=== PATIENT | female | born 1945 | race Caucasian/White ===

== ENCOUNTER 2016-10-22 06:31 | Outpatient (CLI) ==
[2016-10-22 14:31] VITALS: BMI 35.9
--- NOTE | 2016-10-23 10:28 | ECHO2D ---
Date of Exam: 10/22/16 Ordering Physician: DAKOTA PADILLA Reason for Echo: LEFT BUNDLE BRANCH BLOCK, SOB, ABNORMAL EKG Auscultation: S1, S2 M-Mode Normal Adult Results LV Dimensions Normal Adult Results AoV Opening excursions >1.6 >1.6 LVEDD-base- 3.5-5.8 4.8 Ao root dimensions 2.0-3.7 3.3 LVESD-base- 3.1-4.6 L. Atrium dimensions 1.9-3.8 5.2 Post. Wall thickness 0.8-1.1 1.2 IV septum (thickness) 0.7-1.2 1.3 Post. Wall excursion 0.72-1.3 NORMAL Septal motion NORMAL Systolic motion R. Ventricular cavity 1.5-2.0 NORMAL LVEF 60% 63% Paradoxical septal wall motion NORMAL 2-D : NORMAL LEFT VENTRICULAR CONTRACTILITY--ENLARGED LEFT ATRIAL CAVITY--NO EFFUSION, NO THROMBUS, NORMAL LEFT VENTRICLE CAVITY SIZE M-MODE: MV: NORMAL AV: NORMAL TV: NORMAL PV: CHAMBER SIZE: ENLARGED LEFT ATRIAL CAVITY WALL MOTION: NORMAL PERICARDIUM: NORMAL INTERPRETATION: 1. LEFT VENTRICULAR HYPERTROPHY WITH ENLARGED LEFT ATRIAL CAVITY 2. NORMAL LEFT VENTRICULAR CONTRACTILITY 3. NORMAL VALVES MTDD
== END 2016-10-22 06:32 | disposition home or self-care (01) ==
LOC: CAR 06:31
PROVIDERS: ATTEND Internal Medicine
DX: R06.02 Shortness of breath (principal); I44.7 Left bundle-branch block, unspecified

== ENCOUNTER 2016-10-22 13:07 | Inpatient (IN) ==
[~2016-10-22 13:07] MED LIST: LASIX IVP SCH
[2016-10-22 14:31] VITALS: BMI 35.9
--- NOTE | 2016-10-22 16:14 | CT ---
Exam: CT abdomen and pelvis without contrast. Clinical indication: Anemia. TECHNIQUE: Axial unenhanced CT images of the abdomen and pelvis were obtained followed by coronal a nd sagittal reformats. There are no prior studies available for comparison. Findings: There is no free intra-abdominal gas or fluid. The liver, gallbladder, pancreas, spleen, and kidneys are unremarkable, given the limitations of an unenhanced CT. There is a left adrenal mass which measures 3.6 cm in maximum diameter and contains internal density less than 10, consistent with an incidental left adrenal adenoma. The right adrenal gland is unrem arkable. There is an IVC filter in an infrarenal location. There are no enlarged abdominal or pelvic lymph nodes, by size criteria. The pelvic organs are grossly unremarkable, given the limitations of CT for evaluating them. There is sigmoid diverticulosis, without evidence of diverticulitis. The remainder of the bowel is grossly unremarkable. The visualized portions of lower thorax are within normal limits. There is a mild grade 1 anterolisthesis of L3 on L4 of approximately 0.3 cm. There is lower lumbar degenerative disc and facet disease. Impression: 1. Two sigmoid diverticulosis, without evidence of diverticulitis. 2. Incidental left adrenal adenoma. 3. Mild grade 1 anterolisthesis of L3 on L4. 4. Multilevel lumbar degenerative disc and facet disease. 5. IVC filter in an infrarenal location.
[2016-10-22] MEDS: CORDARONE PO SCH (16:53)
[2016-10-22] MEDS: SINGULAIR PO SCH (16:53)
[2016-10-22] MEDS ORDERED: LASIX IVP SCH ×2 (20:30→23:55)
[2016-10-22] MEDS: TOPROL XL PO SCH (20:50)
[2016-10-22] MEDS: NEURONTIN PO SCH (20:50)
[2016-10-22] MEDS ORDERED: NON-FORMULARY MEDICATION (Metoprolol Succinate [Metoprolol Succinate] 100 MG) PO SCH (21:00)
[2016-10-23 01:48] LABS: BASOPHILS # (AUTO) 0.1 K/uL (0-0.2); BASOPHILS % (AUTO) 0.8 % (0.0-3.0); EOSINOPHILS # (AUTO) 0.3 K/ul (0.0-0.7); EOSINOPHILS % (AUTO) 2.2 % (0.0-7.0); HEMATOCRIT 24.6 % (37.0-47.0); HEMOGLOBIN 8.4 g/dl (12.0-16.0); IMMATURE GRANULOCYTE % (AUTO) 0.6 % (0.0-5.0); LYMPHOCYTES % (AUTO) 32.2 (10.0-50.0); MEAN CORPUSCULAR HEMOGLOBIN 29.2 pg (27.0-31.0); MEAN CORPUSCULAR HGB CONC 34.1 (31.8-35.4); MEAN CORPUSCULAR VOLUME 85.4 fl (81.0-99.0); MONOCYTES # (AUTO) 0.9 K/uL (0.4-2.0); MONOCYTES % (AUTO) 7.2 (0-10); PLATELET COUNT 327 10^3/uL (140-440); RED BLOOD COUNT 2.88 10^6/ul (4.20-5.40); WHITE BLOOD COUNT 12.34 K/ul (4.6-10.2)
[2016-10-23 01:58] LABS: PROTHROMBIN TIME 12.1 SEC (9.3-11.0)
[2016-10-23 02:07] LABS: ALBUMIN 3.6 g/dL (3.4-5.0); ALBUMIN/GLOBULIN RATIO 1.38; ANION GAP 17.7; BILIRUBIN,TOTAL 0.62 mg/dL (0.00-1.20); BUN/CREATININE RATIO 20.23; CALCIUM 8.3 mg/dL (8.2-10.2); CREATININE 1.68 mg/dL (0.60-1.30); POTASSIUM 3.7 mmol/L (3.5-5.10); TOTAL PROTEIN 6.2 g/dL (5.8-8.1)
[2016-10-23] MEDS: SYNTHROID PO SCH ×2 (05:32)
[2016-10-23] MEDS ORDERED: SYNTHROID PO SCH (06:30)
[2016-10-23] MEDS ORDERED: NON-FORMULARY MEDICATION (Levothyroxine Sodium [Synthroid] 175 MCG) PO SCH ×22 (06:30)
[2016-10-23] MEDS ORDERED: GLUCOPHAGE PO SCH (08:00)
[2016-10-23] MEDS: ZOLOFT PO SCH (08:40)
[2016-10-23] MEDS: TOPROL XL PO SCH ×2 (08:40→21:37)
[2016-10-23] MEDS: JANUVIA PO SCH (08:40)
[2016-10-23] MEDS: LOTENSIN PO SCH (08:41)
[2016-10-23] MEDS: DYAZIDE PO SCH (08:41)
[2016-10-23] MEDS: NEURONTIN PO SCH ×2 (08:41→21:37)
[2016-10-23] MEDS: PSEUDOEPHEDRINE PO SCH (08:41)
[2016-10-23] MEDS: LORATADINE PO SCH (08:41)
[2016-10-23] MEDS ORDERED: SITAGLIPTIN PHOS PO SCH (09:00)
[2016-10-23] MEDS ORDERED: [UNRECOGNIZED DRUG - OTHER] PO SCH (09:00)
[2016-10-23] MEDS ORDERED: METFORMIN HCL PO SCH (09:00)
[2016-10-23] MEDS ORDERED: NON-FORMULARY MEDICATION (Sertraline Hcl [Sertraline Hcl] 100 MG) PO SCH (09:00)
[2016-10-23] MEDS ORDERED: LASIX IVP ONE (13:00)
--- NOTE | 2016-10-23 13:32 | PCM.PROG ---
Attending Provider: ATTENDING PROVIDER: Dr. DAKOTA PADILLA DATE OF SERVICE: 10/23/16 SUBJECTIVE: This 71 year old WHITE/ F was hospitalized 10/22/16. The patient is hospitalized with anemia and rectal bleeding. The patient is not actively bleeding but still has some fresh blood in the bowel movements off and on. Hemoglobin is 8.4 and hematocrit is 24. Kidney functions are stable. The patient will be given one more unit of PRBC and will get a referral to GI. Telemetry shows sinus rhythm. REVIEW OF SYSTEMS: CONSTITUTIONAL: No night sweats. No fatigue, malaise, lethargy. No fever or chills. HEENT: Eyes: No visual changes. No eye pain. No eye discharge. ENT: No runny nose. No epistaxis. No sinus pain. No odynophagia. No congestion. RESPIRATORY: No cough, no congestion. No hemoptysis. CARDIOVASCULAR: No angina symptoms. No CHF symptoms. No atypical chest pain for CAD. No palpitations. No shortness of breath. GASTROINTESTINAL: No abdominal pain. No nausea or vomiting. No diarrhea or constipation. GENITOURINARY: No urgency. No frequency. No dysuria. No hematuria. No obstructive symptoms. No discharge. No pain. No significant abnormal bleeding. MUSCULOSKELETAL: arthritis NEUROLOGICAL: Awake, alert, oriented to time, place and person. No headache. No neck pain. No syncope. No seizures. No dizziness. PSYCHIATRIC: Not anxious. No depression. No suicidal thoughts. No homicidal thoughts. SKIN: No rash. No lesions. No wounds. ENDOCRINE: No unexplained weight loss. No weight gain. HEMATOLOGIC/LYMPHATIC: Anemia. No purpura. No petechiae. No prolonged or excessive bleeding. No palpable lymph nodes. PHYSICAL EXAMINATION: GENERAL: The patient is awake, alert and oriented, lying in bed in no distress. VITAL SIGNS: Temperature 97.3 F, Pulse 67, Respiratory Rate 12, BP 142/63, Pulse Ox 98% HEENT: Head normocephalic, atraumatic. Eyes: Extraocular muscles are intact. Pupils are equal, round and reactive to light and accommodation. Ears: No lesions. Nose appeared normal. Throat: No exudate or erythema. NECK: Supple. No JVD, no carotid bruit. No lymphadenopathy or thyromegaly. LUNGS: Clear to auscultation. Percussion note normal. Chest symmetrical. HEART: S1, S2, no S3. No murmurs. No cyanosis or clubbing. No ascites. Pulses: Dorsalis pedis and posterior tibial pulses +1 to +2 both sides. ABDOMEN: Soft. Non-tender. Bowel sounds active. No CVA tenderness. No mass felt. EXTREMITIES: No edema. Full range of motion of all extremities, equal. NEUROLOGIC: No focal deficit. Cranial nerves II through XII are grossly intact. No headache, no double vision or headache. SKIN: Not dry. Intact. Turgor-normal. LYMPHATIC: No palpable lymph nodes/no lymphedema. MUSCULOSKELETAL: Normal joints with no swelling. Muscle tone is normal. LAB REVIEW: 10/23/16 01:40 10/23/16 01:40 10/23/16 01:40: WBC 12.34 H, RBC 2.88 L, Hgb 8.4 L, Hct 24.6 L, MCV 85.4, MCH 29.2, MCHC 34.1, RDW Coeff of Margarita 14.2, Plt Count 327, Immature Gran % (Auto) 0.6, Neut % (Auto) 57.0, Lymph % (Auto) 32.2, [place] % (Auto) 7.2, Eos % (Auto) 2.2, Baso % (Auto) 0.8, Immature Gran # (Auto) 0.1, Neut # 7.0 H, Lymph # 4.0 H , [place] # 0.9, Eos # 0.3, Baso # 0.1, PT 12.1 H, INR 1.17, Sodium 134 L, Potassium 3.7, Chloride 98, Carbon Dioxide 22 L, Anion Gap 17.7, BUN 34 H, Creatinine 1.68 H, Estimated GFR (MDRD) 30.00, BUN/Creatinine Ratio 20.23, Glucose 108, Calcium 8.3, Total Bilirubin 0.62, AST 22, ALT 25, Alkaline Phosphatase 54, Total Protein 6.2, Albumin 3.6, Globulin 2.6, Albumin/Globulin Ratio 1.38 10/22/16 14:15: Hgb 6.9 L, TSH 1.925, Blood Type O POSITIVE, Antibody Screen Negative, Crossmatch (AHG) See Detail ASSESSMENT: 1. Anemia, stable with rectal bleed 2. CKD 3. Severe dyslipidemia, untreated because of problem with statins 4. History of DVT with IVC filter 5. History of cardioversion times. At the present time, the patient is in sinus rhythm. The patient is off Coumadin. PLAN: 1. Referral to GI 2. Will transfuse pne more unit of PRBC. 3. Lasix 20 mg after transfusion. 4. Hold Glucophage. Plan and coordination of the patient's care discussed in the presence of Art Historian and nurse. CONDITION: STABLE SCRIBED BY: Chelsea SCHAFFER scribed while in presence of service performed by Dr. DAKOTA PADILLA on 10/23/16 ([id number])
[2016-10-23 14:52] LABS: HEMATOCRIT 31.8 % (37.0-47.0); HEMOGLOBIN 10.9 g/dl (12.0-16.0)
--- NOTE | 2016-10-23 14:58 | HP ---
DATE OF SERVICE: 10/22/16 REASON FOR HOSPITALIZATION: Severe anemia, blood in stool. HISTORY OF PRESENT ILLNESS: This is 71-year-old female who called the office to see me as hemoglobin and hematocrit were 7.3 and 21.0 on 10/21/16. Hemoglobin and hematocrit two months ago were 11.7 and 36; 10/30 on 10/05/16. The patient is complaining of rectal bleeding times three weeks; spotting; bright red and at times, clots (small). No bleeding times five days. She complains of shortness of breath and fatigue times two weeks. REVIEW OF SYSTEMS: CONSTITUTIONAL: Fatigue. No fever. HEENT: No sinus drainage, no sore throat. RESPIRATORY: No cough. No hemoptysis. CARDIOVASCULAR: Shortness of breath with little exertion. No atypical chest pain for coronary artery disease. No angina, CHF symptoms, or palpitations. GASTROINTESTINAL: No melena or abdominal pain. No GERD. GENITOURINARY: No hematuria, no polyuria. NEUROLOGY MANAGER: Dizziness. No blackout, no headache, no double vision. MUSCULOSKELETAL: Osteoarthritic pain. ENDOCRINE: No weight loss, no weight gain. SKIN: Not dry, no rash. PSYCHIATRIC: Anxious. No depression, no suicidal thoughts, no homicidal thoughts. PAST MEDICAL/SURGICAL HISTORY: 1. History of C. difficile colitis 2. History of melanoma 3. Cardioversion in 2014 4. Sleep apnea 5. Hypothyroidism 6. Type 2 diabetes mellitus 7. Hypertension 8. Atrial fibrillation 9. Depression 7. Osteoarthritis 8. Chronic kidney disease 9. Dyslipidemia 10. History of anemia 11. Left total knee arthroplasty, 2009 12. Right total knee arthroplasty with subsequent MRSA infection 13. Carpal tunnel surgery 14. History of [place] catheter placement 15. Cataract surgery. SOCIAL HISTORY: Nonsmoker. . Retired from [employer]. No alcohol use. She denies illicit drug use. Two children. She is retired from [employer]. Family History: Cardiac disorders; thyroid disease. History of leukemia in Father. MEDICATIONS: (Home) 1. Montelukast 10 mg p.o. q.p.m. 2. Levothyroxine (Synthroid) 175 mcg p.o. q.d a.c. 3. Warfarin (Coumadin) 3 mg p.o. q.p.m. 4. Amiodarone (Cordarone) 200 mg p.o. q.p.m. 5. Triamterene/Hydrochlorothiazide (Maxzide 37.5 mg - 25 mg) one each p.o. q.a.m. 6. Sitagliptin/Metformin one each p.o. q.a.m. 7. Sertraline 100 mg p.o. q.a.m. 8. Metoprolol 100 mg p.o. b.i.d. 9. Loratadine/Pseudoephedrine one tab p.o. q.a.m. 10. Gabapentin (Neurontin) 300 mg p.o. b.i.d. 11. Benazepril 10 mg p.o. q.a.m. ALLERGIES: PENICILLINS, NLVOTAL-PBE-DBL REDUCTASE INHIBITOR PHYSICAL EXAMINATION: V/S: Pulse 84, BP 118/80, 02 sat 100%. Weight 222.6 pounds; height 5'6". BMI 35.9. GENERAL APPEARANCE: Oriented times three. Pallor positive. HEENT: Normal. NECK: No JVP, no bruits. RESPIRATORY: Lungs are clear. CARDIOVASCULAR: S1, S2, no S3, no murmurs. No cyanosis, clubbing. No ascites. GI/ABDOMEN: No tenderness. Bowel sounds are active. EXTREMITIES: No edema, pulses +1, equal. NEUROLOGY MANAGER: Deep tendon reflexes, sensory, motor and gait all normal. RECTAL/PELVIC: Colonoscopy at [facility] 2013. Mammogram - 2009 LAB REVIEW: The patient's hemoglobin was noted to be 6.8 with hematocrit of 20, which again has dropped from the one that was done yesterday which was 7.3 with 21 hematocrit. There is no evidence of active GI bleed. Hemoglobin A1C 6.9. TSH normal. The patient's CT scan of the abdomen and pelvis showed sigmoid diverticulosis, left adrenal adenoma, DJD spine, IVC filter infrarenal location noted. Lipids done on 10/21/16 showed cholesterol 340, triglycerides 381 with LDL 193 with non HDL 263. Creatinine was 1.5, BUN 27, TSH 4.9, mildly elevated. B12 level was normal. The patient was scheduled for Dobutamine Stress Echo Sestamibi on 10/23/16 which has been canceled. ASSESSMENT: 1. SEVERE ANEMIA, HEMOGLOBIN 7.3; HEMATOCRIT 23 2. RECTAL BLEEDING 3. DIABETES MELLITUS TYPE 2 4. ATRIAL FIBRILLATION 5. DEPRESSION 6. CHRONIC KIDNEY DISEASE STAGE 3 - DR. VASQUES 7. HYPERTENSION 8. HYPERLIPIDEMIA 9. MELANOMA RIGHT ARM 10. HYPOTHYROIDISM 11. DYSLIPIDEMIA - SEVERE 12. SLEEP APNEA ON BIPAP 13. DEPRESSION 14. HISTORY OF C. DIFFICILE 15. TOTAL KNEE REPLACEMENT, BILATERAL 16. MRSA RIGHT KNEE PLAN: 1. Admit 2. Routine telemetry orders 3. CT scan of abdomen and pelvis without contrast 4. Continue all medications 5. Type and crossmatch 2 units and transfuse DODIE 6. Daily CBC/CMP 7. Protime daily a.m. 8. T4 and TSH 9. Refer to public health registrar 10. Get records from [facility] CONDITION: Stable TIME SPENT: More than 70 minutes. MTDD
[2016-10-23] MEDS: SINGULAIR PO SCH (17:47)
[2016-10-23] MEDS: CORDARONE PO SCH (17:47)
[2016-10-24] MEDS: SYNTHROID PO SCH ×2 (05:52→05:53)
[2016-10-24 07:30] LABS: BASOPHILS # (AUTO) 0.1 K/uL (0-0.2); BASOPHILS % (AUTO) 0.9 % (0.0-3.0); EOSINOPHILS # (AUTO) 0.3 K/ul (0.0-0.7); EOSINOPHILS % (AUTO) 3.1 % (0.0-7.0); HEMATOCRIT 29.4 % (37.0-47.0); HEMOGLOBIN 9.9 g/dl (12.0-16.0); IMMATURE GRANULOCYTE % (AUTO) 1.2 % (0.0-5.0); LYMPHOCYTES # (AUTO) 3.1 K/uL (0.60-3.4); LYMPHOCYTES % (AUTO) 31.9 (10.0-50.0); MEAN CORPUSCULAR HEMOGLOBIN 27.9 pg (27.0-31.0); MEAN CORPUSCULAR HGB CONC 33.7 (31.8-35.4); MEAN CORPUSCULAR VOLUME 82.8 fl (81.0-99.0); MONOCYTES % (AUTO) 9.9 (0-10); NEUTROPHILS # (AUTO) 5.1 K/ul (2.0-6.9); PLATELET COUNT 330 10^3/uL (140-440); RED BLOOD COUNT 3.55 10^6/ul (4.20-5.40); WHITE BLOOD COUNT 9.67 K/ul (4.6-10.2)
[2016-10-24 07:46] LABS: PROTHROMBIN TIME 11.1 SEC (9.3-11.0)
[2016-10-24 07:56] LABS: ALBUMIN 3.6 g/dL (3.4-5.0); ALBUMIN/GLOBULIN RATIO 1.33; ANION GAP 15.2; BILIRUBIN,TOTAL 0.39 mg/dL (0.00-1.20); BUN/CREATININE RATIO 21.78; CALCIUM 8.8 mg/dL (8.2-10.2); CREATININE 1.79 mg/dL (0.60-1.30); POTASSIUM 3.2 mmol/L (3.5-5.10); TOTAL PROTEIN 6.3 g/dL (5.8-8.1)
[2016-10-24] MEDS: JANUVIA PO SCH (08:58)
[2016-10-24] MEDS: TOPROL XL PO SCH ×2 (08:58→20:10)
[2016-10-24] MEDS: LOTENSIN PO SCH (08:59)
[2016-10-24] MEDS: DYAZIDE PO SCH (08:59)
[2016-10-24] MEDS: ZOLOFT PO SCH (08:59)
[2016-10-24] MEDS: LORATADINE PO SCH (09:00)
[2016-10-24] MEDS: PSEUDOEPHEDRINE PO SCH (09:00)
[2016-10-24] MEDS: NEURONTIN PO SCH ×2 (09:03→20:08)
[2016-10-24] MEDS ORDERED: K-DUR ONE (15:03)
[2016-10-24] MEDS: MICRO-K CAP PO SCH ×3 (15:38→23:14)
[2016-10-24] MEDS: SINGULAIR PO SCH (16:51)
[2016-10-24] MEDS: CORDARONE PO SCH (16:51)
[2016-10-24] MEDS ORDERED: MICRO-K CAP PO STA (17:34)
[2016-10-25 05:21] VITALS: BP 104/56; TEMP 96.7
[2016-10-25 05:34] LABS: BASOPHILS # (AUTO) 0.1 K/uL (0-0.2); BASOPHILS % (AUTO) 0.9 % (0.0-3.0); EOSINOPHILS # (AUTO) 0.4 K/ul (0.0-0.7); EOSINOPHILS % (AUTO) 3.1 % (0.0-7.0); HEMATOCRIT 31.3 % (37.0-47.0); HEMOGLOBIN 10.7 g/dl (12.0-16.0); IMMATURE GRANULOCYTE % (AUTO) 1.5 % (0.0-5.0); LYMPHOCYTES # (AUTO) 3.3 K/uL (0.60-3.4); LYMPHOCYTES % (AUTO) 29.2 (10.0-50.0); MEAN CORPUSCULAR HEMOGLOBIN 28.6 pg (27.0-31.0); MEAN CORPUSCULAR HGB CONC 34.2 (31.8-35.4); MEAN CORPUSCULAR VOLUME 83.7 fl (81.0-99.0); MONOCYTES # (AUTO) 1.1 K/uL (0.4-2.0); MONOCYTES % (AUTO) 10.1 (0-10); NEUTROPHILS # (AUTO) 6.2 K/ul (2.0-6.9); NEUTROPHILS % (AUTO) 55.2; PLATELET COUNT 333 10^3/uL (140-440); RED BLOOD COUNT 3.74 10^6/ul (4.20-5.40); WHITE BLOOD COUNT 11.24 K/ul (4.6-10.2)
[2016-10-25] MEDS: MICRO-K CAP PO SCH (05:36)
[2016-10-25] MEDS: SYNTHROID PO SCH ×2 (05:37)
[2016-10-25 05:44] LABS: PROTHROMBIN TIME 10.4 SEC (9.3-11.0)
[2016-10-25 06:07] LABS: ALBUMIN 3.4 g/dL (3.4-5.0); ALBUMIN/GLOBULIN RATIO 1.26; ANION GAP 15.6; BILIRUBIN,TOTAL 0.31 mg/dL (0.00-1.20); BUN/CREATININE RATIO 27.15; CALCIUM 8.8 mg/dL (8.2-10.2); CREATININE 1.51 mg/dL (0.60-1.30); POTASSIUM 3.6 mmol/L (3.5-5.10); TOTAL PROTEIN 6.1 g/dL (5.8-8.1)
[2016-10-25] MEDS: TOPROL XL PO SCH (08:30)
[2016-10-25] MEDS: LOTENSIN PO SCH (08:30)
[2016-10-25] MEDS: NEURONTIN PO SCH (08:30)
[2016-10-25] MEDS: ZOLOFT PO SCH (08:30)
[2016-10-25] MEDS: JANUVIA PO SCH (08:31)
[2016-10-25] MEDS: DYAZIDE PO SCH (08:31)
[2016-10-25] MEDS: LORATADINE PO SCH (08:33)
[2016-10-25] MEDS: PSEUDOEPHEDRINE PO SCH (08:33)
[2016-10-25] MEDS ORDERED: NIFEREX 150 PO SCH (21:00)
[2016-10-26] MEDS ORDERED: PROTONIX PO SCH (06:30)
--- NOTE | 2016-10-26 09:55 | PN ---
DATE OF SERVICE: 10/24/16 SUBJECTIVE: 71-year-old white female hospitalized with severe anemia. The patient has rectal bleed, seems to be bright red bleeding off and on. The patient has been given three units of packed red cells yesterday. The patient's hemoglobin was 10.9; this morning it is 9.9. The patient will be given 1 unit of packed red cells today and see whether she stays stable. She has had no real bleeding for the past 12 hours. BMs are regular. No abdominal pain. REVIEW OF SYSTEMS: CONSTITUTIONAL: No night sweats. No fatigue, malaise, lethargy. No fever or chills. HEENT: Eyes: No visual changes. No eye pain. No eye discharge. ENT: No runny nose. No epistaxis. No sinus pain. No sore throat. No odynophagia. No congestion. RESPIRATORY: No cough, no congestion. No hemoptysis. CARDIOVASCULAR: No angina symptoms. No CHF symptoms. No atypical chest pain for CAD. No palpitations. No shortness of breath. GASTROINTESTINAL: No abdominal pain. No nausea or vomiting. No diarrhea or constipation. No hematemesis. No hematochezia. GENITOURINARY: No urgency. No frequency. No dysuria. No hematuria. No obstructive symptoms. No discharge. No pain. No significant abnormal bleeding. MUSCULOSKELETAL: No musculoskeletal pain; no joint swelling. NEUROLOGICAL: No headache. No neck pain. No syncope. No seizures. No dizziness. PSYCHIATRIC: Not anxious. No depression. No suicidal thoughts. No homicidal thoughts. SKIN: No rash. No lesions. No wounds. ENDOCRINE: No unexplained weight loss. No weight gain. HEMATOLOGIC/LYMPHATIC: No purpura. No petechiae. No prolonged or excessive bleeding. No palpable lymph nodes. PHYSICAL EXAMINATION: GENERAL: The patient is oriented to time, place and person. VITAL SIGNS: Temperature 97.6, pulse 61, respiratory rate 14, BP 100/60, pulse ox 97%. HEENT: Head normocephalic, atraumatic. Eyes: Extraocular muscles are intact. Pupils are equal, round and reactive to light and accommodation. Ears: No lesions. Nose appeared normal. Throat: No exudate or erythema. NECK: Supple. No JVD, no carotid bruit. No lymphadenopathy or thyromegaly. LUNGS: Decreased breath sounds. Clear to auscultation. Percussion note normal. Chest symmetrical. HEART: S1, S2, no S3. No murmurs. No cyanosis or clubbing. No ascites. Pulses: Dorsalis pedis and posterior tibial pulses +1 to +2 both sides. ABDOMEN: Soft. Nontender. Bowel sounds active. No CVA tenderness. No mass felt. EXTREMITIES: No edema. Full range of motion of all extremities, equal. NEUROLOGIC: No focal deficit. Cranial nerves II through XII are grossly intact. No headache, no double vision or headache. SKIN: Not dry. Intact. Turgor - normal. LYMPHATIC: No palpable lymph nodes/no lymphedema. MUSCULOSKELETAL: Normal joints with no swelling. Muscle tone is normal. ASSESSMENT/PLAN: 1. Anemia. Keep hemoglobin and hematocrit 10/30. 2. Hypokalemia. Will give K-tab 10 mEq four times a day. 3. History of atrial fibrillation. Right now the patient is in sinus rhythm for the last 3 to 4 days while she is being monitored. 4. Chronic kidney disease followed by automobile club information clerk. Creatinine 1.6, BUN 34 and steady. The patient will receive one more unit of packed red cells. The patient is off Coumadin. The patient knows the risk; in fact, she is the one that said she is not going to take the Coumadin until bleeding from the rectum stops, I agree with her because the hemoglobin from 10.6 had fallen to 6.9 within a few weeks. In fact, there is some drop in the hemoglobin even after 3 units of packed red cells. The is also agreeable. There is always that risk of having a stroke because of history of atrial fibrillation but the patient has been in sinus rhythm ever since I have known her. The patient had three cardioversions at [place]. The patient also has IVC filter for recurrent DVT which happened postop. CONDITION: Stable. TIME SPENT: More than 30 minutes. Plan and coordination of the patient's care discussed in the presence of nurse. BERNADETTE
--- NOTE | 2016-10-26 10:05 | PN ---
DATE OF SERVICE: 10/25/16 - DISCHARGE NOTE SUBJECTIVE: 71-year-old white female hospitalized with severe anemia with rectal bleed. The patient still had bright red blood a couple of times a day, small amount. The patient was given 4 units of packed red cells. Hemoglobin is 10.7 with hematocrit of 31 which is stable. She is up and about. She does not have any symptoms of CHF or coronary insufficiency. REVIEW OF SYSTEMS: CONSTITUTIONAL: No night sweats. No fatigue, malaise, lethargy. No fever or chills. HEENT: Eyes: No visual changes. No eye pain. No eye discharge. ENT: No runny nose. No epistaxis. No sinus pain. No sore throat. No odynophagia. No congestion. RESPIRATORY: No cough, no congestion. No hemoptysis. CARDIOVASCULAR: No angina symptoms. No CHF symptoms. No atypical chest pain for CAD. No palpitations. No shortness of breath. GASTROINTESTINAL: No abdominal pain. No nausea or vomiting. No diarrhea or constipation. No hematemesis. No hematochezia. GENITOURINARY: No urgency. No frequency. No dysuria. No hematuria. No obstructive symptoms. No discharge. No pain. No significant abnormal bleeding. MUSCULOSKELETAL: No musculoskeletal pain; no joint swelling. NEUROLOGICAL: No headache. No neck pain. No syncope. No seizures. No dizziness. PSYCHIATRIC: Not anxious. No depression. No suicidal thoughts. No homicidal thoughts. SKIN: No rash. No lesions. No wounds. ENDOCRINE: No unexplained weight loss. No weight gain. HEMATOLOGIC/LYMPHATIC: No anemia. No purpura. No petechiae. No prolonged or excessive bleeding. No palpable lymph nodes. PHYSICAL EXAMINATION: GENERAL: The patient is oriented to time, place and person. VITAL SIGNS: Temperature 97.6, pulse 60/min, respiratory rate 16, BP 104/56, pulse ox 98%. HEENT: Head normocephalic, atraumatic. Eyes: Extraocular muscles are intact. Pupils are equal, round and reactive to light and accommodation. Ears: No lesions. Nose appeared normal. Throat: No exudate or erythema. NECK: Supple. No JVD, no carotid bruit. No lymphadenopathy or thyromegaly. LUNGS: Decreased breath sounds. Clear to auscultation. Percussion note normal. Chest symmetrical. HEART: S1, S2, no S3. No murmurs. No cyanosis or clubbing. No ascites. Pulses: Dorsalis pedis and posterior tibial pulses +1 to +2 both sides. ABDOMEN: Soft. Nontender. Bowel sounds active. No CVA tenderness. No mass felt. EXTREMITIES: No edema. Full range of motion of all extremities, equal. NEUROLOGIC: No focal deficit. Cranial nerves II through XII are grossly intact. No headache, no double vision or headache. SKIN: Not dry. Intact. Turgor - normal. LYMPHATIC: No palpable lymph nodes/no lymphedema. MUSCULOSKELETAL: Normal joints with no swelling. Muscle tone is normal. ASSESSMENT: 1. GI bleed which is stable mostly rectal. 2. Chronic kidney disease 3. DVT with IVC filter placement 4. Diabetes mellitus 5. History of chronic anemia PLAN: 1. The patient is going to be put on Niferex 150 mg b.i.d. 2. Protonix 40 mg p.o. q.a.m. 3. Advised to continue the rest of the medications as before. 4. Coumadin will be put on hold until further orders as discussed in the previous progress note. The patient and the both have agreed to stop the Coumadin because of risk of Coumadin doing more bleeding. 5. The patient has been in sinus rhythm ever since I have known her. The patient had three cardioversions, the third one converted her to sinus. Ever since then she has been in sinus. She was continued on Amiodarone. 5. The rest of the medications were continued except for Coumadin. 6. The patient is advised to see me on Wednesday in case the bleeding gets worse, she feels light-headed or has any symptoms of CHF. 7. The patient is going to have appointment with Dr. Evans on Wednesday. The patient will see me on Wednesday. CONDITION: Stable. TIME SPENT: More than 30 minutes. Plan and coordination of the patient's care discussed in the presence of nurse. BERNADETTE
--- NOTE | 2016-10-26 10:30 | DS ---
DATE OF SERVICE: 10/25/16 FINAL DIAGNOSIS: 1. RECTAL BLEED WITH SEVERE ANEMIA 2. HISTORY OF CHRONIC ANEMIA SEEN BY DR. VASQUEZ, THE PATIENT IS ON CHRONIC IRON THERAPY 3. CHRONIC KIDNEY DISEASE FOLLOWED BY FEDERAL DISTRICT CLERK 4. HISTORY OF ATRIAL FIBRILLATION WITH THREE CARDIOVERSIONS, NOW IN SINUS RHYTHM FOR A LONG TIME ON COUMADIN THERAPY 5. HYPERTENSION 6. DEPRESSION 7. DIABETES MELLITUS 8. HYPOTHYROIDISM 9. NEUROPATHY DISCHARGE INSTRUCTIONS: Followup appointment with Dr. Strickland on Wednesday10/28/16. The patient is to see Dr. Evans on Friday 10/27 at 1 p.m. MEDICATIONS AT DISCHARGE: 1. Continue Amiodarone, Benazepril, Gabapentin, Levothyroxine, Metoprolol, Singulair, Zoloft, Janumet, Maxide as before. 2. Discontinue Warfarin. NEW PRESCRIPTIONS: 1. Niferex 150 mg p.o. by mouth two times a day. 2. Protonix 40 mg p.o. every morning. DIET INSTRUCTIONS: Heart Healthy, diabetic diet ACTIVITY: Gradually increase as tolerated. SMOKING: N/A DISEASE SPECIFIC EDUCATION: Diagnoses Medications Followup, followup with Dr. Evans Discontinuing Coumadin and the risk associated HOSPITAL COURSE: 71-year-old white female hospitalized with continuous drop in hemoglobin from 10.8 to 6.9. The patient has been given 4 units of packed red cells. Hemoglobin and hematocrit have been stabilized at 10.7 with hematocrit of 31. The patient has bright red rectal bleed off and on. She was taken off Coumadin. She understands the risks of not taking Coumadin; in fact, after long discussion with the patient and , it was decided for Coumadin. The patient has been in sinus rhythm for the past several months; in fact, after her third cardioversion she has been on Amiodarone. Considering the sudden drop in hemoglobin and hematocrit, it would not be prudent to continue Coumadin in any way. CONDITION AT TIME OF DISCHARGE: Stable. TIME SPENT: More than 60 minutes. MTDD
== END 2016-10-25 11:05 | disposition home or self-care (01) | DRG 812 ==
LOC: MEDSURG A 13:07
PROVIDERS: ADMIT Internal Medicine; ATTEND Internal Medicine
PROC: 30243N1 Transfusion of Nonautologous Red Blood Cells into Central Vein, Percutaneous Approach (ICD-10-PCS; principal; 2016-10-22)
PROC: 30243N1 Transfusion of Nonautologous Red Blood Cells into Central Vein, Percutaneous Approach (ICD-10-PCS; 2016-10-22)
PROC: 30243N1 Transfusion of Nonautologous Red Blood Cells into Central Vein, Percutaneous Approach (ICD-10-PCS; 2016-10-23)
PROC: 30243N1 Transfusion of Nonautologous Red Blood Cells into Central Vein, Percutaneous Approach (ICD-10-PCS; 2016-10-24)
DX: D50.0 Iron deficiency anemia secondary to blood loss (chronic) (principal); K62.5 Hemorrhage of anus and rectum; I48.91 Unspecified atrial fibrillation; E11.9 Type 2 diabetes mellitus without complications; I10 Essential (primary) hypertension; N18.3 Chronic kidney disease, stage 3 (moderate); K57.30 Diverticulosis of large intestine without perforation or abscess without bleeding; E78.5 Hyperlipidemia, unspecified; E87.6 Hypokalemia; M47.896 Other spondylosis, lumbar region; F32.9 Major depressive disorder, single episode, unspecified; G62.9 Polyneuropathy, unspecified; Z86.718 Personal history of other venous thrombosis and embolism; Z95.828 Presence of other vascular implants and grafts; Z98.890 Other specified postprocedural states; Z79.899 Other long term (current) drug therapy; Z79.01 Long term (current) use of anticoagulants; R06.02 Shortness of breath; I44.7 Left bundle-branch block, unspecified
CPT/HCPCS: 36415; 36430; 80053; 82962; 84436; 84443; 85014; 85018; 85025; 85610; 86850; 86900; 86922; 87081

== ENCOUNTER 2016-12-10 10:58 | Outpatient (CLI) ==
[2016-12-10 11:14] VITALS: BP 138/72; TEMP 96.2
== END 2016-12-10 10:59 | disposition home or self-care (01) ==
LOC: OPMED 10:58
PROVIDERS: ATTEND Internal Medicine
DX: Z45.2 Encounter for adjustment and management of vascular access device (principal)
CPT/HCPCS: 96523; 99211

== ENCOUNTER 2017-03-03 10:50 | Outpatient (CLI) | payer OTHER ==
[2017-03-03 11:08] VITALS: BP 130/72; TEMP 98.3
[2017-03-03] MEDS ORDERED: SALINE FLUSH (PORT ACCESS TRAY USE ONLY) IVF ONE (11:21)
[2017-03-03] MEDS ORDERED: HEPARIN 500 UNIT/5 ML (PORT ACCESS TRAY ONLY) IVF ONE (11:21)
== END 2017-03-03 10:51 | disposition home or self-care (01) ==
LOC: OPMED 10:50
PROVIDERS: ATTEND Internal Medicine
DX: Z45.2 Encounter for adjustment and management of vascular access device (principal)

== ENCOUNTER 2017-04-01 13:14 | Outpatient (CLI) ==
[2017-04-01 13:41] LABS: BASOPHILS # (AUTO) 0.1 K/uL (0-0.2); BASOPHILS % (AUTO) 1.1 % (0.0-3.0); EOSINOPHILS # (AUTO) 0.3 K/ul (0.0-0.7); HEMATOCRIT 30.8 % (37.0-47.0); HEMOGLOBIN 10.1 g/dl (12.0-16.0); IMMATURE GRANULOCYTE % (AUTO) 0.4 % (0.0-5.0); LYMPHOCYTES # (AUTO) 2.1 K/uL (0.60-3.4); LYMPHOCYTES % (AUTO) 23.7 (10.0-50.0); MEAN CORPUSCULAR HEMOGLOBIN 28.6 pg (27.0-31.0); MEAN CORPUSCULAR HGB CONC 32.8 (31.8-35.4); MEAN CORPUSCULAR VOLUME 87.3 fl (81.0-99.0); MONOCYTES # (AUTO) 0.6 K/uL (0.4-2.0); NEUTROPHILS # (AUTO) 5.8 K/ul (2.0-6.9); NEUTROPHILS % (AUTO) 64.8; PLATELET COUNT 328 10^3/uL (140-440); RED BLOOD COUNT 3.53 10^6/ul (4.20-5.40); WHITE BLOOD COUNT 8.99 K/ul (4.6-10.2)
== END 2017-04-01 13:15 | disposition home or self-care (01) ==
LOC: LAB 13:14
PROVIDERS: ATTEND Internal Medicine
DX: D64.9 Anemia, unspecified (principal)
CPT/HCPCS: 36415; 85025

== ENCOUNTER 2017-06-30 09:14 | Outpatient (CLI) ==
--- NOTE | 2017-06-30 10:18 | US ---
EXAM: Ultrasound abdomen limited HISTORY: Right upper quadrant pain COMPARISON: None TECHNIQUE: Limited ultrasound abdomen right upper quadrant was performed FINDINGS: Visualized portion pancreas appears normal. Portions of the pancreas obscured secondary b owel gas shadowing. Liver diffusely increased in echogenicity. Liver top normal in size. Main port al vein patent with direction of flow. No gallbladder wall thickening or pericholecystic fluid. 1.6 cm rounded echogenic region in the dependent gallbladder without internal vascularity likely focal t umefactive sludge versus less likely soft tissue nodule. No shadowing gallstones. No biliary duct d ilation with common bile duct measuring 0.4 cm. Right kidney measures 9.1 cm in length without hydro nephrosis. IMPRESSION: 1. 1.6 cm rounded echogenic region in the gallbladder likely focal tumefactive sludge versus less li ashleigh soft tissue nodule. Recommend sonographic follow-up 3 months for reevaluation or correlation wi CT with contrast. No shadowing gallstones or gallbladder wall thickening. 2. Echogenic liver, consistent with hepatic steatosis and/or hepatic parenchymal disease.
== END 2017-06-30 09:15 | disposition home or self-care (01) ==
LOC: RAD 09:14
PROVIDERS: ATTEND Internal Medicine
DX: R10.11 Right upper quadrant pain (principal)

== ENCOUNTER 2017-10-07 13:01 | Outpatient (CLI) ==
[2017-10-07 13:17] VITALS: BP 155/68; TEMP 96.8
--- NOTE | 2017-10-08 08:45 | MAMMO ---
EXAM: Digital screening mammogram with tomosynthesis HISTORY: Screening COMPARISON: Screening FINDINGS: Digital MLO and CC views of the right and left breast were performed. Tomosynthesis was performed. Computer aided detection was utilized. Benign bilateral calcifications. Surgical clips ri ght axilla. There are scattered fibroglandular densities. There is no evidence for mass, asymmetry, distortion, or suspicious calcifications in either breast. IMPRESSION: 1. No evidence of malignancy in the right or left breast. 2. Annual screening mammogram is recommended in one year. BIRADS category 2, benign
== END 2017-10-07 13:02 | disposition home or self-care (01) ==
LOC: OPMED 13:01
PROVIDERS: ATTEND Internal Medicine
DX: Z12.31 Encounter for screening mammogram for malignant neoplasm of breast (principal); Z45.2 Encounter for adjustment and management of vascular access device
CPT/HCPCS: 77067; 96523

== ENCOUNTER 2018-01-27 09:55 | Outpatient (CLI) ==
--- NOTE | 2018-01-27 11:56 | MRI ---
EXAM: MRI brain without and with IV contrast. DATE: 27 Jan 2018. HISTORY: Melanoma left arm. Dizziness. TECHNIQUE: Sagittal T1W pre and postcontrast, axial T2W, axial FLAIR, axial T1W pre and postcontrast , axial DWI, coronal T1W postcontrast, and coronal T2W GRE sequences of the brain were obtained using 1.2 Layla magnet. CONTRAST: Omniscan - 20 ml IV. COMPARISON: None. FINDINGS: CSF spaces overlying the superior vertex of the brain are mildly prominent, without locula corey collections. The ventricles are upper normal size. Many cerebral sulci and some cerebellar sulc i are mildly enlarged. Horizontal fissures and some cerebellar sulci are somewhat prominent. No mid line shift or herniation is apparent. No acute infarct, hemorrhage or enhancing neoplasm is identifi ed. No abnormal contrast enhancement is identified in the brain, meninges or dura. Minimal T2W/FLAI R hyperintensity is observed in the white matter abutting the anterior horn of each lateral ventricle . The mares - white matter differentiation is normal. No migration or diverticulation abnormality is identified. The amygdala, hippocampus, and parahippocampal gyri are similar bilaterally. The 7th/8 th cranial nerve complexes, cerebellopontine angles, brainstem, and visible cervical spinal cord are normal. There is no cerebellar tonsillar ectopia. The pituitary gland is small in size, with CSF fi lling part of the pituitary fossa. Corpus callosum is normal in size and configuration. Flow voids are present in the major intracranial arteries and in the dural venous sinuses. No aneurysm, AVM or dural venous sinus thrombosis is apparent. Appearance of the lens of each eye suggests prior catarac t surgery. No other orbit abnormality is identified. The mastoid air cells are unremarkable. There is no acute sinusitis. No neck mass or lymphadenopathy is detected. No calvarial neoplasm or acute fracture is evident. Arthritic changes are visible in the C1 - odontoid joint, with posterior soft t issue pannus apparently causing moderate central canal stenosis in the C2 ring level. IMPRESSIONS: 1. No acute infarct, hemorrhage, enhancing neoplasm or hydrocephalus. 2. Minimal cerebral small vessel disease. 3. Mild cerebral and minor cerebellar atrophy. 4. 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 5. 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
== END 2018-01-27 09:56 | disposition home or self-care (01) ==
LOC: RAD 09:55
PROVIDERS: ATTEND Internal Medicine
DX: R42 Dizziness and giddiness (principal); C43.9 Malignant melanoma of skin, unspecified

== ENCOUNTER 2018-11-08 13:17 | Outpatient (CLI) ==
[2018-11-08] MEDS ORDERED: HEPARIN 500 UNIT/5 ML (PORT ACCESS TRAY ONLY) IVF ONE (13:41)
== END 2018-11-08 13:18 | disposition home or self-care (01) ==
LOC: OPMED 13:17
PROVIDERS: ATTEND Internal Medicine
DX: Z45.2 Encounter for adjustment and management of vascular access device (principal); C43.9 Malignant melanoma of skin, unspecified; Z92.21 Personal history of antineoplastic chemotherapy
CPT/HCPCS: 96523

== ENCOUNTER 2018-11-28 11:06 | Emergency (ER) | payer OTHER ==
[2018-11-28 11:16] VITALS: BP 181/78; TEMP 97.4; BMI 37.4
--- NOTE | 2018-11-28 12:06 | CT ---
EXAM: CT of the head without contrast History: Head trauma. Comparison: Brain MRI 01/27/2018 Technique: Multiplanar CT images through the head were obtained without the administration of IV con trast Findings: The visualized paranasal sinuses and mastoid air cells are clear in general. No acute calv arial abnormalities. Mild diffuse cerebral atrophy. No midline shift and no hydrocephalus. There is a moderate amount of acute subarachnoid hemorrhage within the basilar cisterns. Impression: Acute subarachnoid hemorrhage within the basilar cisterns could be post-traumatic or due to a ruptured aneurysm. Critical results communicated to Dr. Hinojosa at 12:00 p.m. 11/28/2018 half
--- NOTE | 2018-11-28 12:09 | CT ---
EXAM: CT of the cervical spine without contrast History: Head and neck trauma. Technique: Multiplanar CT images through the cervical spine were obtained without the administration of IV contrast Findings: The visualized upper lungs are clear. The visualized airway remains patent. Reversal of the normal cervical lordosis. No acute fracture or subluxation of the cervical spine. S evere disc space narrowing at C5-6 and C6-7 with endplate sclerosis and osteophyte formation. Mild t o moderate central canal stenosis at C5-6 and C6-7 secondary to posterior disc osteophyte complexes. Moderate to severe multilevel bilateral bony neural foraminal narrowing secondary to uncovertebral a nd facet hypertrophy. Impression: No acute osseous abnormality of the cervical spine. Degenerative changes.
--- NOTE | 2018-11-28 12:14 | ED.PDOC ---
General ED Provider: Dr. BATOOL WYNN Chief Complaint: Head Injury Stated Complaint: pt reported of a fall 3 days ago and has been noted to have a headache and difficluty walking. NO L.O.C reported . pt take coumadin 3mg at bed time for AFIB . Time Seen by Physician: 11:07 (pt deficits noted gait not attempted ) Mode of Arrival: Wheelchair Information Source: Patient, Family Exam Limitations: No limitations Primary Care Provider: DAKOTA PADILLA Referred to ED by: Other (no scalp injury noted ) Nursing and Triage Documentation Reviewed and Agree: Yes Does patient meet sepsis criteria?: No If yes, has appropriate treatment been initiated?: No System Inflammatory Response Syndrome: Not Applicable Sepsis Protocol: For patient's 13 years and over: Temp is 96.8 and below OR 101 and greater Pulse >90 BPM Resp >20/minute Acutely Altered Mental Status Are patient's symptoms suggestive of a new infection, such as: -Pneumonia -Skin, Soft Tissue -Endocarditis -UTI -Bone, Joint Infection -Implantable Device -Acute Abdominal Infection -Wound Infection -Meningitis -Blood Stream Catheter Infection -Unknown Trauma/Injury Complaint Exam - Trauma Complaint/Exam Location of Pain or Injury: Reports: Head, Neck Mechanism of Injury: Reports: Fall (it is unclear why pt had a head ) Onset/Duration: 2 days ago Symptoms Are: Still present Timing of Treatment: Delayed Initial Severity: Mild Current Severity: Mild Character: Reports: Aching Aggravating: Reports: None Alleviating: Reports: None Associated Signs and Symptoms: Reports: LOC (possible before the fall). Denies : Confusion, Memory loss, Lethargy, Vomiting, Bleeding, Bruising, Swelling, Extremity disuse, Painful respiration, Hoarseness, Dysphagia, Hemoptysis, Significant blood loss Related History: Reports: Anticoagulants (coumadin 3 mg) Penetrating Injury Risk Factors: Reports: None Related Surgical History: Reports: None Nexus Low Risk Criteria: No post-midline CS tender, No evidence of intoxicat., No Altered LOC, No focal neuro deficit, No distracting injuries Glascow Coma Scale (see protocol): 15 Trauma Findings: Absent: [place] eyes, Hemotympanum, Nasal deformity, Dental tenderness, Dental injury, Dental malocclusion, Neck tenderness, Neck spasm, SubQ Air, Crepitus, Airway obstructed, Trachea displaced, Labored respirations, Decreased breath sounds, Muffled heart sounds, Weak pulses, Absent pulses, Abdominal distention, Pelvic tenderness, Pelvic instability Skin Findings: Present: Normal findings Differential Diagnoses: Other (ruptured aneurysm) Review of Systems - Review Of Systems Constitutional: Reports: No symptoms Eyes: Reports: No symptoms Ears, Nose, Mouth, Throat: Reports: No symptoms Respiratory: Reports: No symptoms Cardiac: Reports: No symptoms GI: Reports: No symptoms : Reports: No symptoms Musculoskeletal: Reports: No symptoms Skin: Reports: No symptoms Neurological: Reports: Headache Endocrine: Reports: No symptoms Hematologic/Lymphatic: Reports: No symptoms All Other Systems: Reviewed and Negative Past Medical History - Past Medical History Previously Healthy: Yes Endocrine: Reports: DM 2, Hypothyroid Cardiovascular: Reports: Hypertension, A-Fib Respiratory: Reports: None Hematological: Reports: None Gastrointestinal: Reports: None Genitourinary: Reports: None Neuro/Psych: Reports: None Musculoskeletal: Reports: None Cancer: Reports: None Last Menstrual Period: n/a - Surgical History General Surgical History: Reports: None - Family History Family History: Reports: None - Social History Smoking Status: Former smoker Hx Substance Use: No Alcohol Screening: Occasionally Physical Exam - Physical Exam Appearance: Well-appearing, No pain distress, Well-nourished Eyes: LEOPOLDO, EOMI, Conjunctiva clear ENT: Ears normal, Nose normal, Oropharynx normal Respiratory: Airway patent, Breath sounds clear, Breath sounds equal, Respirations nonlabored Cardiovascular: RRR, Pulses normal, No rub, No murmur GI/: Soft, Nontender, No masses, Bowel sounds normal, No Organomegaly Musculoskeletal: Normal strength, ROM intact, No edema, No calf tenderness Skin: Warm, Dry, Normal color Neurological: Sensation intact, Motor intact, Reflexes intact, Cranial nerves intact, Alert, Oriented Psychiatric: Affect appropriate, Mood appropriate Interpretation - Radiology Interpretation Radiology Interpretation By: Radiologist Radiology Results: Positive (ACUTE [place] HEMORRAGHE) - 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: [place] Rhythm: Sinus - EKG Interpretation Rate: [place] Rhythm: Sinus [place]: Left (L.B.B.B) Re-Evaluation - Re-Evaluation Time of Re-Evaluation: 13:22 Status: Unchanged Vital Signs Stable: Yes (bp systolic is 180 on cardene drip neuro is entire nonefocal) Appearance: NAD Lungs: Clear Skin: Warm and Dry Neuro: Alert and Oriented X3 CV: RRR - Re-Evaluation Time of Re-Evaluation: 13:33 Status: Unchanged Vital Signs Stable: Yes Pain Level: 0 Appearance: NAD Skin: Warm and Dry Neuro: Alert and Oriented X3 CV: RRR (helicopter here) Physician Notification - Case Discussed Physician Notified: CATINA CASTRO Time of Notification: 12:15 (TRANSFER ) Critical Care Note - Critical Care Note Total Time (mins): 120 Course - Course Hematology/Chemistry: 11/28/18 12:30 11/28/18 12:30 Orders, Labs, Meds: Lab Review 11/28/18 11/28/18 11/28/18 12:30 12:30 12:30 WBC 11.31 H RBC 3.79 L Hgb 10.5 L Hct 33.0 L MCV 87.1 MCH 27.7 MCHC 31.8 RDW Coeff of Margarita 13.9 Plt Count 278 Immature Gran % (Auto) 1.0 Neut % (Auto) 78.3 Lymph % (Auto) 13.1 Luce % (Auto) 7.0 Eos % (Auto) 0.2 Baso % (Auto) 0.4 Immature Gran # (Auto) 0.1 Neut # (Auto) 8.9 H Lymph # (Auto) 1.5 Luce # (Auto) 0.8 Eos # (Auto) 0.0 Baso # (Auto) 0.0 PT 23.7 H INR 2.43 APTT 33.6 Sodium 137.7 Potassium 3.82 Chloride 101.7 Carbon Dioxide 26.7 Anion Gap 13.12 BUN 20.0 H Creatinine 0.92 Estimated GFR (MDRD) 60.00 BUN/Creatinine Ratio 21.73 Glucose 154.3 H Calcium 9.39 Total Bilirubin 0.26 AST 26.8 ALT 25.4 Alkaline Phosphatase 81.2 Total Protein 7.38 Albumin 4.29 Globulin 3.09 Albumin/Globulin Ratio 1.38 Orders Category Date Time Status EKG-(ED ONLY) Stat CARDIO 11/28/18 12:10 Completed ED IV/MEDIPORT/POWERPORT .ONCE EMERGENCY 11/28/18 12:10 Active CBC W/ AUTO DIFF Stat LAB 11/28/18 12:30 Completed COMPREHENSIVE METABOLIC PANEL Stat LAB 11/28/18 12:30 Completed PARTIAL THROMBOPLASTIN TIME Stat LAB 11/28/18 12:30 Completed PT WITH INR Stat LAB 11/28/18 12:30 Completed 0.9 % Sodium Chloride [Premix 200Ml 0.86% Sodium MEDS 11/28/18 13:00 Active Chloride] 1 bag Nicardipine in NaCl, Iso-Osm [Cardene-NaCl 20 mg/200 ml Soln] 20 mg IV 5 mg/hr 0.9 % Sodium Chloride [Saline Flush] MEDS 11/28/18 12:10 Active 1 syr IVF PRN PRN Morphine Sulfate [Morphine 2 mg/ml Syringe] MEDS 11/28/18 12:36 Discontinued 2 mg IVP ONCE STA Nicardipine in NaCl, Iso-Osm [Cardene-NaCl 20 mg/200 ml MEDS 11/28/18 12:46 Discontinued Soln] 200 ml IV .STK-MED Ondansetron HCl/Pf [Zofran 4 mg/2 ml] MEDS 11/28/18 12:36 Discontinued 4 mg IVP ONCE STA Phytonadione Inj [Vitamin K] 10 mg MEDS 11/28/18 13:24 Active 0.9 % Sodium Chloride [Sodium Chloride] [address] CERVICAL SPINE W/O CONTRAST Stat RADS 11/28/18 11:[address] HEAD W/O CONTRAST Stat RADS 11/28/18 11:10 Completed Medications Generic Name Dose Route Start Last Admin Trade Name Freq PRN Reason Stop Dose Admin Nicardipine/Sodium Chloride 20 200 mls @ 50 mls/hr 11/28/18 13:00 11/28/18 12 :54 mg/ Sodium Chloride IV 5 mg/hr .Q4H PHAM 50 mls/hr Administration Protocol 5 MG/HR Phytonadione 10 mg/ Sodium 151 mls @ 302 mls/hr 11/28/18 13:24 11/28/18 13:32 Chloride IV 11/28/18 13:53 302 mls/hr ONCE STA Administration Sodium Chloride 1 syr 11/28/18 12:10 11/28/18 12:44 Saline Flush IVF 1 syr PRN PRN Administration To flush IV Discontinued Medications Generic Name Dose Route Start Last Admin Trade Name Freq PRN Reason Stop Dose Admin Morphine Sulfate 2 mg 11/28/18 12:36 11/28/18 12:43 Morphine 2 Mg/Ml Syringe IVP 11/28/18 12:37 2 mg ONCE STA Administration Ondansetron HCl 4 mg 11/28/18 12:36 11/28/18 12:42 Zofran 4 Mg/2 Ml IVP 11/28/18 12:37 4 mg ONCE STA Administration Vital Signs: Temp Pulse Resp BP Pulse Ox 11/28/18 11:06 97.4 F L 59 L 20 181/78 H 98 Departure - Departure Time of Disposition: 13:34 Disposition: TSF SHORT-TRM HOSP Discharge Problem: Subarachnoid bleed, Hypertensive emergency Instructions: Subarachnoid Hemorrhage (DC) Condition: Good Pt referred to PMD for follow-up: Yes IPMP verified?: No Allergies/Adverse Reactions: Allergies Penicillins Adverse Reaction (Verified 11/28/18 11:17) Unknown [id number] Reductase Inhibitor Adverse Reaction (Verified 11/28/18 11:17) Unknown Home Medications: Ambulatory Orders Amiodarone HCl [Cordarone] 200 mg PO QPM 10/22/16 Benazepril HCl 10 mg PO QAM 10/22/16 Gabapentin [Neurontin] 300 mg PO BID 10/22/16 Levothyroxine Sodium [Synthroid] 175 mcg PO QDAC 10/22/16 Loratadine/Pseudoephedrine [Loratadine-D 24Hr Tablet] 1 tab PO QAM 10/22/16 Metoprolol Succinate 100 mg PO BID 10/22/16 Montelukast Sodium 10 mg PO QPM 10/22/16 Sertraline HCl 100 mg PO QAM 10/22/16 Sitagliptin Phos/Metformin HCl [Janumet 50-1,000 mg Tablet] 1 each PO QAM Triamterene/Hydrochlorothiazid [Maxzide 37.5 mg-25 mg Tablet] 1 each PO QAM 11/06 Iron Polysaccharide Complex [Ferrex 150] 150 mg PO BID #60 capsule 10/25/16 Pantoprazole Sodium [Protonix] 40 mg PO QDAC #30 tablet. 10/25/16 Warfarin Sodium [Coumadin] 3 mg PO BEDTIME 11/08/18 Transfer Form Completed: Yes Disposition Discussed With: Patient, Family
[2018-11-28] MEDS: ZOFRAN 4 MG/2 ML IVP STA (12:42)
[2018-11-28] MEDS: MORPHINE 2 MG/ML SYRINGE IVP STA (12:43)
[2018-11-28] MEDS: CARDENE-NACL 20 MG/200 ML SOLN 20 MG in PREMIX 200ML 0.86% SODIUM CHLORIDE 1 BAG IV SCH (12:54)
[2018-11-28] MEDS: CARDENE-NACL 20 MG/200 ML SOLN 200 ML IV ONE (12:55)
[2018-11-28] MEDS: VITAMIN K IV STA (13:32)
[2018-11-28] MEDS: SODIUM CHLORIDE IV STA (13:32)
== END 2018-11-28 13:52 | disposition short-term general hospital (02) ==
LOC: ED 11:06
DX: S09.90XA Unspecified injury of head, initial encounter (principal); R51 Headache; R26.2 Difficulty in walking, not elsewhere classified; I48.91 Unspecified atrial fibrillation; Z79.01 Long term (current) use of anticoagulants; R55 Syncope and collapse; I16.0 Hypertensive urgency; I60.9 Nontraumatic subarachnoid hemorrhage, unspecified; W19.XXXA Unspecified fall, initial encounter
CPT/HCPCS: 36415; 80053; 85025; 85610; 85730; 93005; 93010; 96365; 96368; 96375; 99285

== ENCOUNTER 2018-12-06 13:29 | Emergency (ER) | payer OTHER ==
[2018-12-06 13:29] VITALS: BMI 37.4
[2018-12-06 13:34] VITALS: BP 129/82; TEMP 98.2
--- NOTE | 2018-12-06 14:02 | ED.PDOC ---
General ED Provider: Dr. AGUILA KELLY MD Chief Complaint: Back Pain Stated Complaint: hip pain fall x 1 week ago Time Seen by Physician: 13:42 Mode of Arrival: Wheelchair Information Source: Patient Exam Limitations: No limitations Primary Care Provider: DAKOTA PADILLA Nursing and Triage Documentation Reviewed and Agree: Yes Does patient meet sepsis criteria?: No If yes, has appropriate treatment been initiated?: Yes System Inflammatory Response Syndrome: Not Applicable Sepsis Protocol: For patient's 13 years and over: Temp is 96.8 and below OR 101 and greater Pulse >90 BPM Resp >20/minute Acutely Altered Mental Status Are patient's symptoms suggestive of a new infection, such as: -Pneumonia -Skin, Soft Tissue -Endocarditis -UTI -Bone, Joint Infection -Implantable Device -Acute Abdominal Infection -Wound Infection -Meningitis -Blood Stream Catheter Infection -Unknown Review of Systems - Review Of Systems Constitutional: Reports: Other (hip pain) Eyes: Reports: No symptoms Ears, Nose, Mouth, Throat: Reports: No symptoms Respiratory: Reports: No symptoms Cardiac: Reports: No symptoms GI: Reports: No symptoms : Reports: No symptoms Musculoskeletal: Reports: No symptoms Skin: Reports: No symptoms Neurological: Reports: No symptoms Endocrine: Reports: No symptoms Hematologic/Lymphatic: Reports: No symptoms All Other Systems: Reviewed and Negative Past Medical History - Past Medical History Previously Healthy: Yes Endocrine: Reports: DM 2, Hypothyroid Cardiovascular: Reports: Hypertension, A-Fib Respiratory: Reports: None Hematological: Reports: None Gastrointestinal: Reports: None Genitourinary: Reports: None Neuro/Psych: Reports: None Musculoskeletal: Reports: None Cancer: Reports: None Last Menstrual Period: n/a - Surgical History General Surgical History: Reports: None - Family History Family History: Reports: None - Social History Smoking Status: Former smoker Hx Substance Use: No Alcohol Screening: Occasionally Physical Exam - Physical Exam Appearance: Well-appearing, Well-nourished, Obese Ill-appearing: None Pain Distress: Mild Eyes: LEOPOLDO, EOMI, Conjunctiva clear ENT: Ears normal, Nose normal, Oropharynx normal Respiratory: Airway patent, Breath sounds clear, Breath sounds equal, Respirations nonlabored Cardiovascular: RRR, Pulses normal, No rub, No murmur GI/: Soft, Nontender, No masses, Bowel sounds normal, No Organomegaly Musculoskeletal: Limited ROM (right hip) Skin: Warm, Dry, Normal color Neurological: Sensation intact, Motor intact, Reflexes intact, Cranial nerves intact, Alert, Oriented Psychiatric: Affect appropriate, Mood appropriate Critical Care Note - Critical Care Note Total Time (mins): 0 Course - Course Orders, Labs, Meds: Orders Category Date Time Status CT PELVIS W/O CONTRAST Stat RADS 12/06/18 14:00 Completed Vital Signs: Temp Pulse Resp BP Pulse Ox 12/06/18 13:29 98.2 F 54 L 20 129/82 96 Departure - Departure Time of Disposition: 15:33 Disposition: HOME SELF-CARE Discharge Problem: Diverticulitis Contusion, hip Qualifiers: Encounter type: initial encounter Laterality: right Qualified Code(s): S70.01XA - Contusion of right hip, initial encounter Instructions: Hip Contusion (ED) Condition: Good Pt referred to PMD for follow-up: Yes IPMP verified?: No Prescriptions: Ciprofloxacin HCl [Cipro] 500 mg PO BID 10 Days #20 tablet NS Allergies/Adverse Reactions: Allergies Penicillins Adverse Reaction (Verified 12/06/18 13:33) Unknown [id number] Reductase Inhibitor Adverse Reaction (Verified 12/06/18 13:33) Unknown Home Medications: Ambulatory Orders Amiodarone HCl [Cordarone] 200 mg PO QPM 10/22/16 Benazepril HCl 10 mg PO QAM 10/22/16 Gabapentin [Neurontin] 300 mg PO BID 10/22/16 Levothyroxine Sodium [Synthroid] 175 mcg PO QDAC 10/22/16 Loratadine/Pseudoephedrine [Loratadine-D 24Hr Tablet] 1 tab PO QAM 10/22/16 Metoprolol Succinate 100 mg PO BID 10/22/16 Montelukast Sodium 10 mg PO QPM 10/22/16 Sertraline HCl 100 mg PO QAM 10/22/16 Sitagliptin Phos/Metformin HCl [Janumet 50-1,000 mg Tablet] 1 each PO QAM Triamterene/Hydrochlorothiazid [Maxzide 37.5 mg-25 mg Tablet] 1 each PO QAM 11/06 Iron Polysaccharide Complex [Ferrex 150] 150 mg PO BID #60 capsule 10/25/16 Pantoprazole Sodium [Protonix] 40 mg PO QDAC #30 tablet. 10/25/16 Warfarin Sodium [Coumadin] 3 mg PO BEDTIME 11/08/18 Ciprofloxacin HCl [Cipro] 500 mg PO BID 10 Days #20 tablet NS 12/06/18
--- NOTE | 2018-12-06 14:43 | CT ---
EXAM: CT of the pelvis without contrast History: Pelvic trauma, left hip pain. Comparison: CT abdomen pelvis 10/22/2016 Technique: Multiplanar CT images through the pelvis were obtained without the administration of IV c ontrast Findings: Tiny focus of air is seen in the bladder lumen. No perirectal inflammation. Atrophic uterus. Colon ic diverticulosis. There is inflammation seen adjacent to the proximal sigmoid colon. No abscess is seen. The No acute fracture or dislocation. Mild to moderate narrowing of bilateral hip joints. Severe degene rative disc disease at L4-L5. Impression: 1. Acute sigmoid diverticulitis. 2. No acute osseous abnormalities. 3. Severe degenerative disc disease at L4-L5
== END 2018-12-06 16:02 | disposition home or self-care (01) ==
LOC: ED 13:29
DX: M54.9 Dorsalgia, unspecified (principal); M25.559 Pain in unspecified hip; K57.92 Diverticulitis of intestine, part unspecified, without perforation or abscess without bleeding
CPT/HCPCS: 99283

== ENCOUNTER 2019-01-16 10:00 | Outpatient (RCR) | END 2019-01-17 23:59 | LOC: NEWBEG 10:00 | PROVIDERS: ATTEND Psychiatry & Neurology Psychiatry | DX: F33.41 Major depressive disorder, recurrent, in partial remission (principal) | CPT/HCPCS: 90792; 90853; 99213 ==

== ENCOUNTER 2019-01-16 13:00 | Outpatient (RCR) ==
--- NOTE | 2019-01-06 15:51 | RS.OPPTEV2 ---
Date of Note: 01/03/19 Visit #: 1 Number of visits approved by Insurance: NA Date of Evaluation: 01/03/19 Payer Source: MEDICARE Surgery Performed?: No Treatment Diagnosis: Recent falls, Gait Abnormality History of Condition/Mechanism of Injury:: Patient reports falling on 11/25/18. States she fell down some steps and hit her head. She had a headache that continued to worsen, so she came to [facility] ER on 11/28/18. She was found to have an Acute Subarachnoid hemorrhage and was sent to [place]. Prior Level of Function.....Patient was independent with: ADL's, Self Care, Caregiving, Ambulation/Mobility, Community Integration/Access Functional Limitations: Ambulation, Community Access/Integration Current Subjective/complaints:: Patient reports she has been walking with a cane since she fell and hit her head. She goes without the cane inside her home. She has recently felt dizziness when she changes positions, such as standing up. States she feels wobbly and unsteady. She has been having tests performed to find out why she is falling. States she has had several falls that have not involved her hitting her head. She has had some medication changed by physicians recently, including blood pressure medication and gabapentin has been reduced. Reports tingling/numbness in the toes of the right foot. She has going out to a screened in [employer]. States they were short steps and her son as made them standard step height. She also has five steps with a rail on both sides at the entrance of her home. States she has had some speech difficulty, mainly finding the correct word that she wants to say. She will be starting with [facility] today. 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 Cardioversion- Afib Smoking Status: Former smoker Hx Home Medications: Butalbital-acetaminophen (Fioricet), gabapentin, benazepril , Singulair, ferrous sulfate, levothyroxine, sertraline (Zoloft), Loratadine-D, metoprolol, allopurinol, Janumet, albuterol sulfte, amiodarone, Norvasc Patient's Goals: Her goal is to improve her balance and her walking. Functional Outcome Measure LE Functional Scale: 31 (31/80=61.25% impairment) Tinetti: 22 (22/28=21.5% impairment) Other: Gait speed .64 m/s. This is ~ 60% impairment compared to other females her age. - G Codes & Severity Modifier G Codes & Modifier: NA Source of G Code score: NA Observation - Observation Inspection: Patient presents to [facility] via transport wheelchair. Posture: Forward Head, Rounded Shoulders, Decreased Lumbar Lordosis Gait - Gait Pattern Gait Comments: Patient ambulates with a straight metal cane in the right hand, independently. She demonstrates RLE ER ~20-30 degrees during swing phase. Less ER is noted in stance phase. She demonstrates decreased right hip and knee flexion during swing phase, and does not consistently clear the right foot. She demonstrates no loss of balance. She does veer laterally at times, mostly noted when walking longer distances. Gait speed without cane 50 feet is 23.69 seconds. This equals .64 meters/second which would classify her as a limited community ambulator. General Range of Motion: Right knee flexion is limited to ~ 100 degrees from past surgeries. Patient able to perform right hip flexion 75% of normal limits against gravity. All else of bilateral LE AROM is WFL's. Muscle Strength: Right hip flexion 3+/5, Abd 3+/5, Ext 4/5, Add 4/5, IR 4/5, ER 4-/5. Right Quads 4/5, HS 4/5. Right ankle 4+/5. Left hip all 4+/5 with exception of IR and ER 4/5. Left quads and HS 4+/5. Left ankle 4+/5. Sensation - Sensation Comments: Patient reports sensation in bilateral LE's intact to light touch. Reports right foot and toes are much less sensitive to light touch and deep pressure, compared to the left foot. Proprioception intact bilateral LE's. Balance - Sitting Balance Static Sitting Balance: Good Dynamic Sitting Balance: Good - Standing Balance Static Standing Balance: Good Dynamic Standing Balance: Fair (+) - Comments Balance Assessment Comments: Single leg standing on left LE ~ 3 seconds without difficulty. Single leg standing on right LE with apprehension and has to hold to steady to take full weight onto right LE. Coordination - Tests Bilateral Toe Tapping: Normal/Intact Comments: Left Heel to Price intact. Patient unable to perform right heel to price due to right knee flexion limitation and right hip weakness. Additional Comments: Additional Comments: Resting BP in sitting 168/86, HR 66. Upon immediate standing BP 174/97, after 1-2 mins standing 181/96. Pulse Ox immediately after walking in department 99% O2. Interventions - Exercise/Activities/Manual Therapy Exercises/Activities: Discussed use of walker in the left hand since the right LE is weaker. She feels more comfortable and secure using the cane in her right hand. States she is willing to change if we decide it would be better for her. Manual Therapy: NA - Charges Timed Code Treatment Minutes: 0 mins Total Treatment Time: 65 mins Procedures billed for this date of service:: EVAL Medium EVALUATION COMPLEXITY LEVEL EVALUATION COMPLEXITY LEVEL: HISTORY: Medium (Hx falls, [place] TKA's, Complicated right TKA revision, Right ankle Fx, HTN, Diabetes), EXAM OF BODY SYSTEMS: Medium (MS, ROM, balance, sensation, proprioception, gait.), CLINICAL PRESENTATION: Medium (evolving, continuing tests to find cause of falls), CLINICAL DECISION MAKING: Medium Assessment Assessment: Patient presents to therapy with a diagnosis of Ataxia following Subarachnoid Hemorrhage from a fall. She reports insecurity with her walking due to recurrent falls. Upon evaluation she demonstrates weakness in her hips. Gait speed is .64 m/s which indicates difficulty walking in the community and may be at increased risk for falls. Tinetti Assessment score of 22/28 indicates a moderate risk for falls. She demonstrates potential to benefit from LE hip strength ex's, and balance and gait training to improve her safety and decrease her risk for falls. Patient Education: Education of diagnosis, Body/Joint mechanics, Home Exercise Program, Home Safety, Activity Modification, Education of Plan of Care Rehab Potential: Good Short Term Goals Goal #1: Pt independent in initial HEP. Goal to be met by: 01/18/19 Goal #2: Right hip strength 4/5. Goal to be met by: 01/23/19 Goal #3: Pt to maintain single leg stand on right LE for 3 secs w/o support. Goal to be met by: 01/23/19 Goal #4: Pt will consistently clear the right foot w/ ambulation in the department. Goal to be met by: 01/23/19 Field Professional Goals Goal #1: Pt knows HEP and to continue ex's to maintain functional level at D/C. Goal to be met by: 02/18/19 Goal #2: Gait speed improved to .9 m/s to show improved community ambulation. Goal to be met by: 02/18/19 Goal #3: Tinetti Score improved to 26/28, showing low risk for falls. Goal to be met by: 02/18/19 Goal #4: Pt to amb. w/ AAD community distances with min. gait dev. & good safety. Goal to be met by: 02/18/19 Plan - Treatment to be Provided Procedures: Therapeutic Exercises, Therapeutic Activity, Gait Training, Neuromuscular Rehab, Patient Education Modalities: No Modalities - Treatment Plan Frequency: 2-3 X week Duration: 6 weeks Dates of Detention Goals: 02/18/19 Expiration date of current Insurance Approval:: NA - Treatment Code (1) Muscle weakness of extremity Code(s): M62.81 - MUSCLE WEAKNESS (GENERALIZED) Comments: M62.81 (2) Gait instability Code(s): R26.81 - UNSTEADINESS ON FEET Comments: R26.81 (3) Recurrent falls Code(s): R29.6 - REPEATED FALLS Comments: R29.6 (4) Subarachnoid hemorrhage following injury Qualifiers: Encounter type: subsequent encounter Loss of consciousness presence/ duration: without LOC Qualified Code(s): S06.6X0D - Traumatic subarachnoid hemorrhage without loss of consciousness, subsequent encounter
--- NOTE | 2019-01-06 16:06 | RS.OPPTDN ---
Subjective Date of Note: 01/06/19 Visit #: 2 Number of visits approved by Insurance: NA Date of Evaluation: 01/03/19 Payer Source: MEDICARE Treatment Diagnosis: Recent falls, Gait Abnormality Current Subjective/complaints:: Mrs. Ortiz reports going to [facility] this morning. She will be attended [facility] on Wednesday, and Fridays. Reports no new issues since last seen. Interventions - Exercise/Activities/Manual Therapy Exercises/Activities: Patient performed exercises of resisted hip abduction with yellow theraband, hip adduction isometric with ball 2 sets of 10 reps. Performed single leg hip flexion with 2.5 # on each leg 2 sets of 8 reps. SLR bilaterally 2 sets of 8 reps. Isometric trunk rotation X 10 reps, AROM of lower trunk rotation to each side in controlled ranged X 8 reps. Performed single hip flexion with opposite arm 2 sets of 5 reps bilaterally. In standing , patient performed forward and backward walking and side stepping left to right X 2 reps each. Patient performed weight shift to left LE to step the side and in front with the right LE, then switched legs. Also performed weight shifting to kick the wall all low markers on the wall. Patient demonstrates much greater diffculty maintaining her balance on the right LE. Requires assistance and tactile cues to maintain her balance. Total minutes of Exercise: X 42 mins Manual Therapy: NA - Objective Findings Observations,measurements,etc.: Resting BP in sitting 133/74. Immediate standing BP 133/71. Patient ambulated in the department carrying her cane most of the time. She demonstrates 2-3 times of not clearing the right foot. No loss of balance noted. - Charges Timed Code Treatment Minutes: 42 mins Total Treatment Time: 53 mins Procedures billed for this date of service:: EX2, Neuro Assessment: Mrs. Ortiz shows most difficulty with maintaining balance on right LE and also showed more difficulty with right LE exercises. She demonstrates potential to benefit from strengthening and balance activities to improve her balance and reduce her risk for falls. Patient Education: Education of diagnosis, Body/Joint mechanics, Home Safety, Education of Plan of Care Short Term Goals Goal #1: Pt independent in initial HEP. Goal to be met by: 01/18/19 Goal #2: Right hip strength 4/5. Goal to be met by: 01/23/19 Goal #3: Pt to maintain single leg stand on right LE for 3 secs w/o support. Goal to be met by: 01/23/19 Goal #4: Pt will consistently clear the right foot w/ ambulation in the department. Goal to be met by: 01/23/19 Water Filter Cleaner Goals Goal #1: Pt knows HEP and to continue ex's to maintain functional level at D/C. Goal to be met by: 02/18/19 Goal #2: Gait speed improved to .9 m/s to show improved community ambulation. Goal to be met by: 02/18/19 Goal #3: Tinetti Score improved to 26/28, showing low risk for falls. Goal to be met by: 02/18/19 Goal #4: Pt to amb. w/ AAD community distances with min. gait dev. & good safety. Goal to be met by: 02/18/19 Plan Dates of Water Filter Cleaner Goals: 02/18/19 Expiration date of current Insurance Approval:: NA PLAN: Progress exercises.
--- NOTE | 2019-01-11 16:07 | RS.OPPTDN ---
Subjective Date of Note: 01/11/19 Visit #: 3 Number of visits approved by Insurance: na Date of Evaluation: 01/03/19 Payer Source: MEDICARE Treatment Diagnosis: Recent falls, Gait Abnormality Current Subjective/complaints:: Patient reports mild soreness after increasing exercise last session. Interventions - Exercise/Activities/Manual Therapy Exercises/Activities: Patient performed exercises of resisted hip abduction with green theraband, hip adduction isometric with ball 2 sets of 10 reps. Alt hip flexion with 3# on each leg, 2s/10reps. SLR and hip abd, 2s/10reps each. Isometric trunk rotation. Isometric ankle inversion with hip IR with ball between feet. In standing, patient performed forward and backward walking, side stepping, and grapevine. Patient performed marching, mini-squats, and weight shifting. Leg press with 30# for press, ankle df, then press/knee ext with ball between knees with verbal and tactile cues to engage VMO bilaterally. Patient walks on treadmill for 1mins to see if she feels safe, cues to focus on clearing right foot in swing phase. Total minutes of Exercise: [id number], NEURO 13mins Manual Therapy: NA HOME EXERCISE PROGRAM: Isometric hip flexion with ball. Isometric ankle inversion with hip IR with ball between feet. - Charges Timed Code Treatment Minutes: 41mins Total Treatment Time: 44mins Procedures billed for this date of service:: EX2, NEURO Assessment: Patient able to progress strengthening exercise today. She is attentive to all patient education of dx and HEP. Patient Education: Education of diagnosis, Body/Joint mechanics, Home Exercise Program, Home Safety, Activity Modification Patient demonstrates compliance with HEP?: Yes Short Term Goals Goal #1: Pt independent in initial HEP. Goal to be met by: 01/18/19 Progress towards Goal:: Progressing Goal #2: Right hip strength 4/5. Goal to be met by: 01/23/19 Goal #3: Pt to maintain single leg stand on right LE for 3 secs w/o support. Goal to be met by: 01/23/19 Goal #4: Pt will consistently clear the right foot w/ ambulation in the department. Goal to be met by: 01/23/19 Progress towards Goal:: Progressing Skilled Nursing Goals Goal #1: Pt knows HEP and to continue ex's to maintain functional level at D/C. Goal to be met by: 02/18/19 Progress towards goal: Progressing Goal #2: Gait speed improved to .9 m/s to show improved community ambulation. Goal to be met by: 02/18/19 Goal #3: Tinetti Score improved to 26/28, showing low risk for falls. Goal to be met by: 02/18/19 Goal #4: Pt to amb. w/ AAD community distances with min. gait dev. & good safety. Goal to be met by: 02/18/19 Plan Dates of Skilled Nursing Goals: 02/18/19 Expiration date of current Insurance Approval:: 02/18/19 PLAN: Progress strengthening and balance work to increase patients safety and functional independence.
--- NOTE | 2019-01-13 16:09 | RS.OPPTDN ---
Subjective Date of Note: 01/13/19 Visit #: 4 Number of visits approved by Insurance: na Date of Evaluation: 01/03/19 Payer Source: MEDICARE Treatment Diagnosis: Recent falls, Gait Abnormality Current Subjective/complaints:: Patient reports doing well with therapy today. States she is working on HEP. Pain Assessment - Pain Description Pain Location: right knee, left hip Current Pain Intensity: mild Interventions - Exercise/Activities/Manual Therapy Exercises/Activities: Patient performed exercises of resisted hip abduction with green theraband, hip adduction isometric with ball 2 sets of 10 reps. Alt hip flexion with 3# on each leg, 2s/10reps. SLR and hip abd, 2s/10reps each. Isometric trunk rotation. In standing, patient performed forward and backward walking, side stepping, and grapevine. Unilateral standing on each LE. Patient performed marching, mini-squats, and weight shifting. Total minutes of Exercise: EX 35mins, NEURO 8mins Manual Therapy: NA HOME EXERCISE PROGRAM: Isometric hip flexion with ball. Isometric ankle inversion with hip IR with ball between feet. - Charges Timed Code Treatment Minutes: 43mins Total Treatment Time: 43mins Procedures billed for this date of service:: EX2, NEURO Assessment: Patient progressing with strengthening and balance activities. Patient Education: Body/Joint mechanics, Home Exercise Program, Home Safety, Activity Modification Short Term Goals Goal #1: Pt independent in initial HEP. Goal to be met by: 01/18/19 Progress towards Goal:: Progressing Goal #2: Right hip strength 4/5. Goal to be met by: 01/23/19 Goal #3: Pt to maintain single leg stand on right LE for 3 secs w/o support. Goal to be met by: 01/23/19 Goal #4: Pt will consistently clear the right foot w/ ambulation in the department. Goal to be met by: 01/23/19 Progress towards Goal:: Progressing Hospital Technician Goals Goal #1: Pt knows HEP and to continue ex's to maintain functional level at D/C. Goal to be met by: 02/18/19 Progress towards goal: Progressing Goal #2: Gait speed improved to .9 m/s to show improved community ambulation. Goal to be met by: 02/18/19 Goal #3: Tinetti Score improved to 26/28, showing low risk for falls. Goal to be met by: 02/18/19 Goal #4: Pt to amb. w/ AAD community distances with min. gait dev. & good safety. Goal to be met by: 02/18/19 Plan Dates of Residential Goals: 02/18/19 Expiration date of current Insurance Approval:: 02/18/19 PLAN: Progress with strengthening and balance activities to increase safety and functional mobility.
--- NOTE | 2019-01-16 16:11 | RS.OPPTDN ---
Subjective Date of Note: 01/16/19 Visit #: 5 Number of visits approved by Insurance: na Date of Evaluation: 01/03/19 Payer Source: MEDICARE Treatment Diagnosis: Recent falls, Gait Abnormality Current Subjective/complaints:: Patient reports some increased soreness following last session with increase in resistive exercises. Pain Assessment - Pain Description Pain Location: right knee, left hip Pain Description: Aching Pain Description: soreness Current Pain Intensity: mild to mod Interventions - Exercise/Activities/Manual Therapy Exercises/Activities: Alt hip flexion and SAQ with 3# to each ankle, 2s/10reps each. Patient performed exercises of resisted hip abduction with green theraband , hip adduction isometric with ball 2 sets of 10 reps. Isometric ankle inversion with hip IR with ball. SLR and hip abd, 2s/10reps each. Isometric trunk rotation. Red theraband for hamstring curl and ankle df. In sitting, alt hip flexion and FAQ. Also in sitting, red theraband for ham curl. Ended with isometric hip add with ball. Total minutes of Exercise: 33mins Manual Therapy: NA HOME EXERCISE PROGRAM: Isometric hip flexion with ball. Isometric ankle inversion with hip IR with ball between feet. - Charges Timed Code Treatment Minutes: 33mins Total Treatment Time: 35mins Procedures billed for this date of service:: EX2 Assessment: Patient reporting progress with exercise. She is attentive to patient edcuation and motivated to work on HEP. Patient Education: Body/Joint mechanics, Home Exercise Program Patient demonstrates compliance with HEP?: Yes Short Term Goals Goal #1: Pt independent in initial HEP. Goal to be met by: 01/18/19 Progress towards Goal:: Progressing Goal #2: Right hip strength 4/5. Goal to be met by: 01/23/19 Goal #3: Pt to maintain single leg stand on right LE for 3 secs w/o support. Goal to be met by: 01/23/19 Goal #4: Pt will consistently clear the right foot w/ ambulation in the department. Goal to be met by: 01/23/19 Progress towards Goal:: Progressing Sub Arc Operator Goals Goal #1: Pt knows HEP and to continue ex's to maintain functional level at D/C. Goal to be met by: 02/18/19 Progress towards goal: Progressing Goal #2: Gait speed improved to .9 m/s to show improved community ambulation. Goal to be met by: 02/18/19 Goal #3: Tinetti Score improved to 26/28, showing low risk for falls. Goal to be met by: 02/18/19 Goal #4: Pt to amb. w/ AAD community distances with min. gait dev. & good safety. Goal to be met by: 02/18/19 Plan Dates of Sub Arc Operator Goals: 02/18/19 Expiration date of current Insurance Approval:: 02/18/19 PLAN: Progress with strengthening and balance to increase patients safety and functional activity level.
== END 2019-01-17 23:59 ==
PROVIDERS: ATTEND Internal Medicine
DX: R27.0 Ataxia, unspecified (principal); S06.6X0D Traumatic subarachnoid hemorrhage without loss of consciousness, subsequent encounter; M62.81 Muscle weakness (generalized); R26.81 Unsteadiness on feet; R29.6 Repeated falls; W19.XXXD Unspecified fall, subsequent encounter

== ENCOUNTER 2019-01-27 13:00 | Outpatient (RCR) ==
--- NOTE | 2019-01-18 16:08 | RS.OPPTDN ---
Subjective Date of Note: 01/18/19 Visit #: 6 Number of visits approved by Insurance: na Date of Evaluation: 01/03/19 Payer Source: MEDICARE Treatment Diagnosis: Recent falls, Gait Abnormality Current Subjective/complaints:: Patient reports soreness in the bilateral thighs after increase in resistive exercise last session. States she is working on HEP and seems to be doing more activities at home. Pain Assessment - Pain Description Pain Location: right knee, left hip Pain Description: Aching Current Pain Intensity: mild Interventions - Exercise/Activities/Manual Therapy Exercises/Activities: Alt hip flexion and SAQ increased to 4# to each ankle, 3s/ 10reps each. Resisted hip abduction with green theraband, hip adduction isometric with ball 2s/10reps. SLR and hip abd, 2s/10reps each. Red theraband for hamstring curl and ankle df. Green theraband for resisted hip abd and add, 2s/10reps each. In sitting, alt hip flexion and FAQ with 4# to ankles. Also in sitting, red theraband for ham curl and left hip abduction. Leg press with 30# 25reps, increased to 45# for 15reps. Total minutes of Exercise: 43mins Manual Therapy: na HOME EXERCISE PROGRAM: Isometric hip flexion with ball. Isometric ankle inversion with hip IR with ball between feet. - Charges Timed Code Treatment Minutes: 43mins Total Treatment Time: 43mins Procedures billed for this date of service:: EX3 Assessment: Patient progressing with strengthening and functional activities at home. Short Term Goals Goal #1: Pt independent in initial HEP. Goal to be met by: 01/18/19 Progress towards Goal:: Progressing Goal #2: Right hip strength 4/5. Goal to be met by: 01/23/19 Goal #3: Pt to maintain single leg stand on right LE for 3 secs w/o support. Goal to be met by: 01/23/19 Goal #4: Pt will consistently clear the right foot w/ ambulation in the department. Goal to be met by: 01/23/19 Progress towards Goal:: Progressing Fdc Goals Goal #1: Pt knows HEP and to continue ex's to maintain functional level at D/C. Goal to be met by: 02/18/19 Progress towards goal: Progressing Goal #2: Gait speed improved to .9 m/s to show improved community ambulation. Goal to be met by: 02/18/19 Goal #3: Tinetti Score improved to 26/28, showing low risk for falls. Goal to be met by: 02/18/19 Goal #4: Pt to amb. w/ AAD community distances with min. gait dev. & good safety. Goal to be met by: 02/18/19 Plan Dates of Fdc Goals: 02/18/19 Expiration date of current Insurance Approval:: 02/18/19 PLAN: Progress exercise to increase strength and functional activity level.
--- NOTE | 2019-01-20 15:30 | RS.OPPTDN ---
Subjective Date of Note: 01/20/19 Visit #: 7 Number of visits approved by Insurance: na Date of Evaluation: 01/03/19 Payer Source: MEDICARE Treatment Diagnosis: Recent falls, Gait Abnormality Current Subjective/complaints:: Patient reports she is walking better. States she is using her rollator walker today as she can get around the hospital at a faster speed. States she walks slow when she uses her cane. Interventions - Exercise/Activities/Manual Therapy Exercises/Activities: Alt hip flexion and SAQ increased to 4# to each ankle, 3s/ 10reps each. Resisted hip abduction with green theraband, hip adduction isometric with ball 2s/10reps. Added 1 1/2# to SLR. Red theraband for hamstring curl and ankle df. Green theraband for resisted hip abd and add, 2s/10reps each. In sitting, red theraband for scap retraction. Also in sitting, red theraband for ham curl and left hip abduction. Leg press with 45# 35reps, increased to 60# for 15reps. Total minutes of Exercise: 32mins Manual Therapy: na HOME EXERCISE PROGRAM: Isometric hip flexion with ball. Isometric ankle inversion with hip IR with ball between feet. Alt hip flex, isometric hip flex, SLR. Standing mini-squat, march, toe-ups, alt hip abd - Charges Timed Code Treatment Minutes: 32mins Total Treatment Time: 34mins Procedures billed for this date of service:: EX2 Assessment: Patient reporting good progress with strengthening and with ambulation. Patient Education: Home Exercise Program, Home Safety, Activity Modification Comments: Reviewed HEP and patiernt given copy of new additions. Patient demonstrates compliance with HEP?: Yes Short Term Goals Goal #1: Pt independent in initial HEP. Goal to be met by: 01/18/19 Progress towards Goal:: Progressing Goal #2: Right hip strength 4/5. Goal to be met by: 01/23/19 Goal #3: Pt to maintain single leg stand on right LE for 3 secs w/o support. Goal to be met by: 01/23/19 Progress towards Goal:: Progressing Goal #4: Pt will consistently clear the right foot w/ ambulation in the department. Goal to be met by: 01/23/19 Progress towards Goal:: Progressing Penitentiary Goals Goal #1: Pt knows HEP and to continue ex's to maintain functional level at D/C. Goal to be met by: 02/18/19 Progress towards goal: Progressing Goal #2: Gait speed improved to .9 m/s to show improved community ambulation. Goal to be met by: 02/18/19 Goal #3: Tinetti Score improved to 26/28, showing low risk for falls. Goal to be met by: 02/18/19 Goal #4: Pt to amb. w/ AAD community distances with min. gait dev. & good safety. Goal to be met by: 02/18/19 Plan Dates of Penitentiary Goals: 02/18/19 Expiration date of current Insurance Approval:: 02/18/19 PLAN: Progress strengthening and balance activity to increase patients safety and functional activity level.
--- NOTE | 2019-01-23 15:39 | RS.OPPTDN ---
Subjective Date of Note: 01/23/19 Visit #: 8 Number of visits approved by Insurance: na Date of Evaluation: 01/03/19 Payer Source: MEDICARE Treatment Diagnosis: Recent falls, Gait Abnormality Current Subjective/complaints:: Patient reports she is walking in her home much better. States she is walking in the community with a rollator as it helps increase her gait speed. Interventions - Exercise/Activities/Manual Therapy Exercises/Activities: Alt hip flexion and SAQ 4# to each ankle, 3s/10reps each. Resisted hip abduction with green theraband, hip adduction isometric with ball 2s/10reps. 1 1/2# to SLR. Increased to green theraband for hamstring curl and ankle df. Green theraband for resisted hip abd and add, 2s/10reps each. In sitting, increased to green theraband for scap retraction. Also in sitting, red theraband for ham curl and left hip abduction. Leg press with 45# 30reps, increased to 60# for 15reps. Total minutes of Exercise: 36mins Manual Therapy: na HOME EXERCISE PROGRAM: Isometric hip flexion with ball. Isometric ankle inversion with hip IR with ball between feet. Alt hip flex, isometric hip flex, SLR. Standing mini-squat, march, toe-ups, alt hip abd - Charges Timed Code Treatment Minutes: 36mins Total Treatment Time: 39mins Procedures billed for this date of service:: EX2 Assessment: Patient reporting progress with functional amb in her home. Patient Education: Home Exercise Program Patient demonstrates compliance with HEP?: Yes Short Term Goals Goal #1: Pt independent in initial HEP. Goal to be met by: 01/18/19 Progress towards Goal:: Progressing Goal #2: Right hip strength 4/5. Goal to be met by: 01/23/19 Goal #3: Pt to maintain single leg stand on right LE for 3 secs w/o support. Goal to be met by: 01/23/19 Progress towards Goal:: Progressing Goal #4: Pt will consistently clear the right foot w/ ambulation in the department. Goal to be met by: 01/23/19 Progress towards Goal:: Progressing Teletypesetter Operator Goals Goal #1: Pt knows HEP and to continue ex's to maintain functional level at D/C. Goal to be met by: 02/18/19 Progress towards goal: Progressing Goal #2: Gait speed improved to .9 m/s to show improved community ambulation. Goal to be met by: 02/18/19 Goal #3: Tinetti Score improved to 26/28, showing low risk for falls. Goal to be met by: 02/18/19 Goal #4: Pt to amb. w/ AAD community distances with min. gait dev. & good safety. Goal to be met by: 02/18/19 Plan Dates of Teletypesetter Operator Goals: 02/18/19 Expiration date of current Insurance Approval:: 02/18/19 PLAN: Progress with sstrengthening and balance activity to increase patients functional activity level.
--- NOTE | 2019-01-27 16:22 | RS.OPPTDN ---
Subjective Date of Note: 01/27/19 Visit #: 9 Number of visits approved by Insurance: na Date of Evaluation: 01/03/19 Payer Source: MEDICARE Treatment Diagnosis: Recent falls, Gait Abnormality Current Subjective/complaints:: Reports she is doing much better with ambulation and light ADL's at home. Reports no falls or episodes of right knee/ LE "giving-away". States she feels she can continue HEP and is ready for discharge. Also states she is going to [employer] [facility] with . Interventions - Exercise/Activities/Manual Therapy Exercises/Activities: Alt hip flexion and SAQ 4# to each ankle, 3s/10reps each. Resisted hip abduction with green theraband, hip adduction isometric with ball 2s/10reps. 1 1/2# to SLR. Green theraband for hamstring curl and ankle df. Green theraband for resisted hip abd and add, 2s/10reps each. In sitting, increased to green theraband for scap retraction. Also in sitting, red theraband for ham curl and left hip abduction. Leg press with 45# 30reps, increased to 60# for 15reps, 75# 15reps, then 90# 10reps. Total minutes of Exercise: 34mins Manual Therapy: na HOME EXERCISE PROGRAM: Isometric hip flexion with ball. Isometric ankle inversion with hip IR with ball between feet. Alt hip flex, isometric hip flex, SLR. Standing mini-squat, march, toe-ups, alt hip abd - Objective Findings Observations,measurements,etc.: Tinetti increased to 25/28. Right hip 4/5 MMT. - Charges Timed Code Treatment Minutes: 34mins Total Treatment Time: 36mins Procedures billed for this date of service:: EX2 Assessment: Patient has progressed well and met 6 of 8 goals to date. She reports increased ADL's and will continue HEP. Patient Education: Body/Joint mechanics, Home Exercise Program, Home Safety, Activity Modification Patient demonstrates compliance with HEP?: Yes Short Term Goals Goal #1: Pt independent in initial HEP. Goal to be met by: 01/18/19 Progress towards Goal:: Met Goal #2: Right hip strength 4/5. Goal to be met by: 01/23/19 Progress towards Goal:: Met Goal #3: Pt to maintain single leg stand on right LE for 3 secs w/o support. Goal to be met by: 01/23/19 Progress towards Goal:: Met Goal #4: Pt will consistently clear the right foot w/ ambulation in the department. Goal to be met by: 01/23/19 Progress towards Goal:: Met Custodial Goals Goal #1: Pt knows HEP and to continue ex's to maintain functional level at D/C. Goal to be met by: 02/18/19 Progress towards goal: Met Goal #2: Gait speed improved to .9 m/s to show improved community ambulation. Goal to be met by: 02/18/19 Comments: not assessed Goal #3: Tinetti Score improved to 26, showing low risk for falls. Goal to be met by: 02/18/19 Progress towards goal: Progressing Comments: Goal #4: Pt to amb. w/ AAD community distances with min. gait dev. & good safety. Goal to be met by: 02/18/19 Progress towards goal: Met Plan Dates of Custodial Goals: 02/18/19 Expiration date of current Insurance Approval:: 02/18/19 PLAN: Discharge with HEP.
--- NOTE | 2019-02-16 14:48 | RS.OPPTDC ---
Date of Discharge: 01/27/19 Date of Evaluation: 01/03/19 Number of Visits: 9 Treatment Diagnosis: Recent falls, Gait Abnormality Current Complaints/Gains: Mrs. Ortiz states she is walking better. Denies any recent falls. Also denies any episodes of right knee or LE giving-way. She is able to perform more light ADL's in her home. She is going to [employer] with her . Functional Outcome Measure Tinetti: 25 (25/28 = Low fall risk) - G Codes & Severity Modifier G Codes & Modifier: NA Source of G Code score: NA Interventions - Exercise/Activities/Manual Therapy Exercises/Activities: NA Manual Therapy: na HOME EXERCISE PROGRAM: Isometric hip flexion with ball. Isometric ankle inversion with hip IR with ball between feet. Alt hip flex, isometric hip flex, SLR. Standing mini-squat, march, toe-ups, alt hip abd - Objective Findings Observations,measurements,etc.: Right hip strength 4/5 throughout. Demonstrates consistent clearance of right foot with ambulation. Able to perform single leg stance for 3 seconds or more on the both legs. - Charges Timed Code Treatment Minutes: NA Total Treatment Time: Na Procedures billed for this date of service:: NA Assessment Assessment: Mrs. Ortiz has shown improvement with LE strength and improved safety with ambulation. She now scores a 25 on Tinetti Assessment, which puts her in a category of Low Fall risk. She feels she can continue her HEP and has started going back to [employer] with her . Short Term Goals Goal #1: Pt independent in initial HEP. Goal to be met by: 01/18/19 Progress towards Goal:: Met Goal #2: Right hip strength 4/5. Goal to be met by: 01/23/19 Progress towards Goal:: Met Goal #3: Pt to maintain single leg stand on right LE for 3 secs w/o support. Goal to be met by: 01/23/19 Progress towards Goal:: Met Goal #4: Pt will consistently clear the right foot w/ ambulation in the department. Goal to be met by: 01/23/19 Progress towards Goal:: Met Label Drier Goals Goal #1: Pt knows HEP and to continue ex's to maintain functional level at D/C. Goal to be met by: 02/18/19 Progress towards goal: Met Goal #2: Gait speed improved to .9 m/s to show improved community ambulation. Goal to be met by: 02/18/19 Progress towards goal: Not Met Goal #3: Tinetti Score improved to 26/28, showing low risk for falls. Goal to be met by: 02/18/19 Progress towards goal: Not Met Comments: but progressed to on last visit Goal #4: Pt to amb. w/ AAD community distances with min. gait dev. & good safety. Goal to be met by: 02/18/19 Progress towards goal: Met Plan Reason for Discharge:: No Further Skilled Therapy Indicated
== END 2019-02-17 23:59 ==
PROVIDERS: ATTEND Internal Medicine
DX: R27.0 Ataxia, unspecified (principal); S06.6X9A Traumatic subarachnoid hemorrhage with loss of consciousness of unspecified duration, initial encounter; W19.XXXA Unspecified fall, initial encounter; F33.41 Major depressive disorder, recurrent, in partial remission
CPT/HCPCS: 90853

== ENCOUNTER 2019-02-17 10:00 | Outpatient (RCR) | END 2019-02-17 23:59 | LOC: NEWBEG 10:00 | PROVIDERS: ATTEND Psychiatry & Neurology Psychiatry | DX: F33.41 Major depressive disorder, recurrent, in partial remission (principal) | CPT/HCPCS: 90853; 99214 ==

== ENCOUNTER 2019-03-27 14:05 | Inpatient (IN) ==
[2019-03-27 14:52] VITALS: BMI 38.0
[2019-03-27] MEDS ORDERED: NITROSTAT SL PRN (16:36)
[2019-03-27] MEDS ORDERED: ATROPINE SULFATE PFS IVP PRN (16:36)
[2019-03-27] MEDS ORDERED: TYLENOL PO PRN (16:36)
[2019-03-27] MEDS ORDERED: VISTARIL INJ IM PRN (16:36)
[2019-03-27] MEDS ORDERED: NON-FORMULARY MEDICATION (Sertraline Hcl [Sertraline Hcl] 100 MG) PO SCH (17:00)
--- NOTE | 2019-03-27 17:14 | DI ---
EXAM: Chest two views HISTORY: Shortness of air COMPARISON: None TECHNIQUE: Two views of the chest were performed FINDINGS: Left chest port terminates near the junction of the left brachial cephalic vein and superi or vena cava There is no pleural effusion or pneumothorax. The heart is normal in size. The medias tinal contour is normal. There are no acute abnormalities of the bones. Small calcifications adjacen t to the left shoulder may reflect a joint body formation. IMPRESSION: No acute cardiopulmonary process.
--- NOTE | 2019-03-27 17:51 | CT ---
EXAM: CT of the right knee without then with intravenous contrast COMPARISON: Right lower extremity venous Doppler 03/22/2019. HISTORY: Right knee swelling. Total knee replacement with MRSA. TECHNIQUE: CT images of the right knee were obtained before and after intravenous administration of a contrast solution. Axial reconstructions with sagittal and coronal reformats were provided. FINDINGS: The submitted images are limited by beam hardening artifact and patient motion artifact. There is a total knee prosthesis in place. There is a small suprapatellar effusion with synovial thi ckening and enhancement which is nonspecific though septic joint is not excluded given the patient's history of infection. Correlation with joint aspiration is recommended. There is subcutaneous edema throughout the anterior soft tissues of the knee extending through the proximal calf and distal thig h. No definite soft tissue gas. Ossification/calcification region of the distal quadriceps which ma y represent dystrophic calcification/heterotopic ossification. There is lucency measuring 0.5 cm extent medially within the proximal tibia along the bone cement int erface just inferior to the flange of the tibial component concerning for component loosening. There is some cortical irregularity at that site and osteomyelitis cannot be excluded given the clinical h istory of infection. There is less extensive periprosthetic lucency extending anteriorly, laterally and posteriorly at the bone cement interface. No definite evidence of loosening of the femoral compo nent. No evidence of acute fracture. There is diffuse demineralization. Muscle atrophy most severe involving the peroneus longus/peroneus brevis within the anterior compartm ent of the proximal calf which may represent sequela of old injury versus denervation. There are scattered vascular calcifications. Overall limited assessment blood vessels on this non an giographic study. IMPRESSION: 1. Right total knee prosthesis. Periprosthetic lucency involving the tibial component with most ext ensive changes medially with cortical irregularity at the bone cement interface at that level suggest ing component loosening and/or infection/osteomyelitis. There is a small joint effusion which is non specific. Correlation with joint aspiration and fluid culture is recommended. Labeled white blood c ell study could also be considered. 2. Demineralization. 3. Subcutaneous edema anteriorly. 4. Muscle atrophy most severe involving the peroneus longus/brevis which may represent sequela of an old injury versus denervation.
[2019-03-27] MEDS: CORDARONE PO SCH (18:09)
[2019-03-27] MEDS: SINGULAIR PO SCH (18:09)
[2019-03-27] MEDS: ZOLOFT PO SCH (18:09)
[2019-03-27] MEDS ORDERED: NON-FORMULARY MEDICATION (Metoprolol Succinate [Metoprolol Succinate] 100 MG) PO SCH (21:00)
[2019-03-27] MEDS: LOPRESSOR PO SCH (21:03)
[2019-03-27] MEDS: NEURONTIN PO SCH (21:03)
[2019-03-27] MEDS ORDERED: VASOTEC IV IVP PRN (21:41)
[2019-03-27] MEDS: TYLENOL PO PRN (23:08)
[2019-03-28] MEDS: SYNTHROID PO SCH ×2 (05:41)
[2019-03-28] MEDS ORDERED: NON-FORMULARY MEDICATION (Levothyroxine Sodium [Synthroid] 175 MCG) PO SCH (06:30)
[2019-03-28] MEDS ORDERED: SITAGLIPTIN PHOS PO SCH (09:00)
[2019-03-28] MEDS ORDERED: CHOLECALCIFEROL 2000 UNIT PO SCH (09:00)
[2019-03-28] MEDS ORDERED: BENAZEPRIL HCL 20 MG PO SCH (09:00)
[2019-03-28] MEDS ORDERED: METFORMIN HCL PO SCH (09:00)
[2019-03-28] MEDS ORDERED: WELLBUTRIN PO SCH (09:00)
[2019-03-28] MEDS ORDERED: [UNRECOGNIZED DRUG - OTHER] PO SCH (09:00)
[2019-03-28] MEDS ORDERED: NON-FORMULARY MEDICATION (Magnesium Oxide [Magnesium] 400 MG) PO SCH (09:00)
[2019-03-28] MEDS ORDERED: GLUCOPHAGE PO SCH (09:00)
[2019-03-28] MEDS ORDERED: BUPROPION HCL 100 MG PO SCH (09:00)
[2019-03-28] MEDS: VITAMIN D PO SCH (09:22)
[2019-03-28] MEDS: NEURONTIN PO SCH ×2 (09:23→20:32)
[2019-03-28] MEDS: LOPRESSOR PO SCH ×2 (09:23→20:32)
[2019-03-28] MEDS: NORVASC PO SCH (09:24)
[2019-03-28] MEDS: MAG-OX PO SCH (09:24)
[2019-03-28] MEDS: ASPIRIN EC PO SCH (09:24)
[2019-03-28] MEDS: LOTENSIN PO SCH (09:24)
[2019-03-28] MEDS: JANUVIA PO SCH (09:26)
[2019-03-28] MEDS: DYAZIDE PO SCH (09:29)
--- NOTE | 2019-03-28 09:39 | HP ---
DATE OF SERVICE: 03/27/19 REASON FOR HOSPITALIZATION/HISTORY OF PRESENT ILLNESS: 73 year old white female was admitted to the hospital after recheck on HGB was down to 8 today. The patient was tired and short of breath. PAST MEDICAL HISTORY/PAST SURGICAL HISTORY: Right leg pain Subarachnoid hemophage from fall 12/06 History of brain bleed 01/06,off Coumadin Polyarthritis Anemia Osteoarthritis Cardioversion- atrial fibrillation Dyslipidemia Total knee replacement right with MRSA- appointment in [place] on B12 deficiency Right leg edema Melanoma right arm History of rectal bleed, Dr. Zavaleta at [facility] Hypertension Diabetes Mellitus type 2 A1c 5.6 11/08 Depression, controlled Chronic kidney disease, 3/[address] bilateral, Dr. Meneses REVIEW OF SYSTEMS: CONSTITUTIONAL: No fever, Fatigue. HEENT: No sinus drainage, no sore throat. RESPIRATORY: No cough, no congestion. CARDIOVASCULAR: No atypical chest pain for coronary artery disease. No angina , CHF symptoms, palpitations or shortness of breath. GASTROINTESTINAL: No melena or abdominal pain. No GERD. GENITOURINARY: No hematuria, no prostatism, no polyuria. GWOT IA/ILO INTELLIGENCE SUPPORT: No blackout, no dizziness, no headache, no double vision. MUSCULOSKELETAL: Osteoarthritis pain, Joint swelling, right knee. ENDOCRINE: No weight loss, no weight gain. SKIN: Not dry, no rash. PSYCHIATRIC: Not anxious, no depression, no suicidal thoughts, no homicidal thoughts. SOCIAL HISTORY: Marital Status: . Alcohol Usage: No. Tobacco Usage: No. FAMILY HISTORY: Father , Leukemia Mother , CHF, CAD and COPD Brother 1 age 68, colon cancer Sister 1 age 61 Diabetes Mellitus MEDICATIONS: Montelukast sodium 10mg PO QPM Synthroid 175mcg PO QDAC Cordarone 200mg PO QPM Maxzide 37.5-25mg PO QAM Janumet 50-1,000mg PO QAM Sertraline 100mg QPM Metoprolol 100mg PO twice a day Loratadine-D 24 one tablet QAM Neurontin 300mg PO twice a day Lotensin 20mg PO Daily Zinc 50mg PO daily Magnesium 400mg PO daily Vitamin B-12 1,000mcg PO daily Vitamin D3 2,000units PO daily Wellbutrin 100mg PO daily Vitamin C 100mg PO daily Norvasc 5mg PO daily Allopurinol 100mg PO daily Acetaminophen 500mg two tablet PO Q 8 hours PRN Turmeric Curcumin 500mg PO daily ALLERGIES: Penicillin Statins PHYSICAL EXAMINATION: V/S: Pulse 65, blood pressure 136/76, pulse ox 98%. Height 5'6, BMI 36.1, Weight 223.4. GENERAL APPEARANCE: Oriented times three. HEENT: Normal. NECK: No JVP, no bruits. RESPIRATORY: Decreased breath sounds. CARDIOVASCULAR: S1, S2, no S3, regular rate. no murmurs. No cyanosis, clubbing. No ascites. GI/ABDOMEN: No tenderness. Bowel sounds are active. EXTREMITIES: Trace right pedal edema, pulses +1, equal. GWOT IA/ILO INTELLIGENCE SUPPORT: Deep tendon reflexes, sensory, motor and gait all normal. RECTAL: 2-17 Dr. Evans/PELVIC: Advised yearly. Mammogram 2017. ASSESSMENT: 1. Anemia / 8.6 WBC 13, 03/24 8.4 WBC12, 03/27 8.0 WBC 12 2. Shortness of breath 3. Right knee swelling and history of MRSA infection 4. Right leg pain 5. Subarachnoid hemophage from fall 12/06 6. History of brain bleed 01/06,off Coumadin 7. Polyarthritis 8. Anemia 9. Osteoarthritis 10.Cardioversion- atrial fibrillation 11.Dyslipidemia 12.Total knee replacement right with MRSA- appointment in [place] on 13.B12 deficiency 14.Right leg edema 15.Melanoma right arm 16.History of rectal bleed, Dr. Zavaleta at [facility] 17.Hypertension 18.Diabetes Mellitus type 2 A1c 5.6 11/08 19.Depression, controlled 20.Chronic kidney disease, 3/4 PLAN: 1. Blood cultures x2 2. CT of right knee with and without contrast 3. Chest x-ray 4. U/A 5. Type and cross 1 units PRBC's and give 6. CBC/CMP now and daily 7. Continue telemetry 8. Stool for occult blood 9. Anemia profile 10.Continue home medications. 11.Regular diet TIME SPENT: More than 70 minutes. MTDD
[2019-03-28] MEDS: VANCOMYCIN 1 GM in SODIUM CHLORIDE 250 ML IV SCH ×2 (09:40→20:32)
[2019-03-28] MEDS: ZYLOPRIM PO SCH (10:03)
--- NOTE | 2019-03-28 10:43 | PCM.PROG ---
Attending Provider: ATTENDING PROVIDER: Dr. DAKOTA STRICKLAND This patient is seen with Hamida Shane, Nurse Practitioner. DATE OF SERVICE: 03/28/19 SUBJECTIVE: This 73 year old WHITE/ F was hospitalized 03/27/19. The patient is resting comfortably. CT of the knee showed possible osteomyelitis of the right knee. Hgb is still 8.9 despite transfusion yesterday. She has an appointment with Dr. Quintana, in [place] for her knee. REVIEW OF SYSTEMS: CONSTITUTIONAL: No night sweats. Fatigue. No malaise, lethargy. No fever or chills. HEENT: Eyes: No visual changes. No eye pain. No eye discharge. ENT: No runny nose. No epistaxis. No sinus pain. No odynophagia. No congestion. RESPIRATORY: No cough, no congestion. No hemoptysis. No shortness of breath. CARDIOVASCULAR: No angina symptoms. No CHF symptoms. No atypical chest pain for CAD. No palpitations. No orthopnea.. GASTROINTESTINAL: No abdominal pain. No nausea or vomiting. No diarrhea or constipation. No hematemesis. No hematochezia. GENITOURINARY: No urgency. No frequency. No dysuria. No hematuria. No obstructive symptoms. No discharge. No pain. No significant abnormal bleeding. MUSCULOSKELETAL: No musculoskeletal pain; no joint swelling. Right knee swelling , no redness. NEUROLOGICAL: Awake, alert, oriented to time, place and person. No headache. No neck pain. No syncope. No seizures. No dizziness. PSYCHIATRIC: Not anxious. No depression. No suicidal thoughts. No homicidal thoughts. SKIN: No rash. No lesions. No wounds. ENDOCRINE: No unexplained weight loss. No weight gain. HEMATOLOGIC/LYMPHATIC: Anemia. No purpura. No petechiae. No prolonged or excessive bleeding. No palpable lymph nodes. PHYSICAL EXAMINATION: GENERAL: The patient is awake, alert and oriented, lying in bed in no distress. VITAL SIGNS: Temperature 97.5 F, Pulse 60, Respiratory Rate 18, BP 168/90, Pulse Ox 98% HEENT: Head normocephalic, atraumatic. Eyes: Extraocular muscles are intact. Pupils are equal, round and reactive to light and accommodation. Ears: No lesions. Nose appeared normal. Throat: No exudate or erythema. NECK: Supple. No JVD, no carotid bruit. No lymphadenopathy or thyromegaly. LUNGS: Diminished breath sounds. Clear to auscultation. Percussion note normal. Chest symmetrical. HEART: S1, S2, no S3. Regular heart beat. No murmurs. No cyanosis or clubbing. No ascites. Pulses: Dorsalis pedis and posterior tibial pulses +1 to +2 both sides. ABDOMEN: Soft. Non-tender. Bowel sounds active. No CVA tenderness. No mass felt. EXTREMITIES: Trace right lower extremity edema. Full range of motion of all extremities, equal. NEUROLOGIC: No focal deficit. Cranial nerves II through XII are grossly intact. No headache, no double vision or headache. SKIN: Not dry. Intact. Turgor-normal. LYMPHATIC: No palpable lymph nodes/no lymphedema. MUSCULOSKELETAL: Mild joint swelling. Muscle tone is normal. LAB REVIEW: 03/28/19 03:25 03/28/19 03:25 03/28/19 03:25: Sodium 130.2 L, Potassium 3.75, Chloride 96.3 L, Carbon Dioxide 23.9, Anion Gap 13.75, BUN 25.2 H, Creatinine 1.48 H, Estimated GFR (MDRD) 35.00 , BUN/Creatinine Ratio 17.02, Glucose 93.4, Calcium 8.46, Total Bilirubin 0.36, AST 25.7, ALT 15.1, Alkaline Phosphatase 78.2, Total Protein 6.14 L, Albumin 3.74, Globulin 2.40, Albumin/Globulin Ratio 1.55 03/28/19 03:25: WBC 12.03 H, RBC 3.27 L, Hgb 8.9 L, Hct 27.5 L, MCV 84.1, MCH 27.2, MCHC 32.4, RDW Coeff of Margarita 14.8, Plt Count 261, Immature Gran % (Auto) 0.9, Neut % (Auto) 66.0, Lymph % (Auto) 21.6, Edwards % (Auto) 8.3, Eos % (Auto) 2.5, Baso % (Auto) 0.7, Immature Gran # (Auto) 0.1, Neut # (Auto) 7.9 H, Lymph # (Auto) 2.6, Edwards # (Auto) 1.0, Eos # (Auto) 0.3, Baso # (Auto) 0.1 03/28/19 03:25: Total Creatine Kinase 29.3 L, Troponin I < 0.012 03/27/19 14:45: Total Creatine Kinase 21.9 L, Troponin I < 0.012 03/27/19 14:45: Blood Type O POSITIVE, Antibody Screen Negative, Crossmatch (AHG ) See Detail 03/27/19 14:45: Transferrin 321 03/27/19 14:45: Iron 25.7 L, TIBC 397, % Saturation 6, Vitamin B12 > 1000 H 03/27/19 14:45: Sodium 133.7 L, Potassium 4.48, Chloride 97.0 L, Carbon Dioxide 21.2 L, Anion Gap 19.98, BUN 25.1 H, Creatinine 1.56 H, Estimated GFR (MDRD) 33.00, BUN/Creatinine Ratio 16.08, Glucose 94.0, Calcium 8.90, Ferritin 14.80, Total Bilirubin 0.23, AST 22.1, ALT 17.9, Alkaline Phosphatase 83.0, Total Protein 6.89, Albumin 4.24, Globulin 2.65, Albumin/Globulin Ratio 1.60, Folate > 20.00 03/27/19 14:45: WBC 12.45 H, RBC 2.87 L, Hgb 7.6 L, Hct 24.2 L, MCV 84.3, MCH 26.5 L, MCHC 31.4 L, RDW Coeff of Margarita 14.8, Plt Count 342, Immature Gran % (Auto ) 1.0, Neut % (Auto) 70.5, Lymph % (Auto) 18.0, Edwards % (Auto) 8.4, Eos % (Auto) 1.6, Baso % (Auto) 0.5, Reticulocyte % (Auto) 1.67, Immature Gran # (Auto) 0.1, Neut # (Auto) 8.8 H, Lymph # (Auto) 2.2, Edwards # (Auto) 1.1, Eos # (Auto) 0.2, Baso # (Auto) 0.1, Absolute Retic 0.0479, Retic Hgb Equivalent 25.6 ASSESSMENT: Please see below. 1. Anemia 2. Right total knee replacement with MRSA infection appears to have reoccurrence 3. History of atrial fibrillation with cardioversion. PLAN: 1. Start Rocephin 1 gram IV daily 2. Vancomycin IV dosed by Pharmacy 3. We will get in touch with Dr. Quintana regarding right knee. Plan and coordination of the patient's care discussed in the presence of Operation Manager and nurse. SCRIBED BY: Melba PECKist scribed while in presence of service performed by Dr. Strickland/Hamida Shane APRN on 03/28/19 ([id number])
[2019-03-28] MEDS: ASCORBIC ACID 100 MG PO SCH (11:12)
[2019-03-28] MEDS: NON-FORMULARY MEDICATION (Zinc [Zinc] 50 MG) PO SCH (11:14)
[2019-03-28] MEDS: TURMERIC ROOT EXTRACT 500 MG PO SCH (11:14)
[2019-03-28] MEDS: PSEUDOEPHEDRINE PO SCH (11:23)
[2019-03-28] MEDS: LORATADINE PO SCH (11:23)
[2019-03-28] MEDS: TYLENOL PO PRN ×2 (12:02→21:36)
[2019-03-28] MEDS: ROCEPHIN 1 GM/50 ML D5W 1 GM in PREMIX 50 ML D5W 1 BAG IV SCH (12:55)
[2019-03-28] MEDS: NON-FORMULARY MEDICATION (Cyanocobalamin (Vitamin B-12) [Vitamin B-12] 1,000 MCG) PO SCH (15:44)
[2019-03-28] MEDS: CORDARONE PO SCH (16:47)
[2019-03-28] MEDS: ZOLOFT PO SCH (16:47)
[2019-03-28] MEDS: SINGULAIR PO SCH (16:47)
[2019-03-29] MEDS: SYNTHROID PO SCH ×2 (05:34)
[2019-03-29] MEDS: LOTENSIN PO SCH (08:33)
[2019-03-29] MEDS: DYAZIDE PO SCH (08:33)
[2019-03-29] MEDS: NORVASC PO SCH (08:33)
[2019-03-29] MEDS: VITAMIN D PO SCH (08:33)
[2019-03-29] MEDS: ASPIRIN EC PO SCH (08:33)
[2019-03-29] MEDS: NEURONTIN PO SCH ×2 (08:33→21:20)
[2019-03-29] MEDS: MAG-OX PO SCH (08:34)
[2019-03-29] MEDS: LOPRESSOR PO SCH ×2 (08:34→21:21)
[2019-03-29] MEDS: ZYLOPRIM PO SCH (08:34)
[2019-03-29] MEDS: JANUVIA PO SCH (08:34)
[2019-03-29] MEDS: PSEUDOEPHEDRINE PO SCH (08:36)
[2019-03-29] MEDS: LORATADINE PO SCH (08:36)
[2019-03-29] MEDS: ASCORBIC ACID 100 MG PO SCH (08:36)
[2019-03-29] MEDS: NON-FORMULARY MEDICATION (Cyanocobalamin (Vitamin B-12) [Vitamin B-12] 1,000 MCG) PO SCH (08:36)
[2019-03-29] MEDS: TURMERIC ROOT EXTRACT 500 MG PO SCH (08:37)
[2019-03-29] MEDS: ROCEPHIN 1 GM/50 ML D5W 1 GM in PREMIX 50 ML D5W 1 BAG IV SCH (08:37)
[2019-03-29] MEDS: NON-FORMULARY MEDICATION (Zinc [Zinc] 50 MG) PO SCH (08:37)
[2019-03-29] MEDS: VANCOMYCIN 1 GM in SODIUM CHLORIDE 250 ML IV SCH ×2 (09:56→21:21)
--- NOTE | 2019-03-29 10:01 | PCM.PROG ---
Attending Provider: ATTENDING PROVIDER: Dr. DAKOTA STRICKLAND DATE OF SERVICE: 03/29/19 SUBJECTIVE: This 73 year old WHITE/ F was hospitalized 03/27/19 with anemia and right knee pain. The patient's anemia is stable. She was given 2 units of PRBC. She has no evidence of active GI bleed. No fever, no chills. The patient has a port in place times 4 years. REVIEW OF SYSTEMS: CONSTITUTIONAL: No night sweats. No fatigue, malaise, lethargy. No fever or chills. HEENT: Eyes: No visual changes. No eye pain. No eye discharge. ENT: No runny nose. No epistaxis. No sinus pain. No odynophagia. No congestion. RESPIRATORY: No cough, no congestion. No hemoptysis. No shortness of breath. CARDIOVASCULAR: No angina symptoms. No CHF symptoms. No atypical chest pain for CAD. No palpitations. No orthopnea.. GASTROINTESTINAL: No abdominal pain. No nausea or vomiting. No diarrhea or constipation. No hematemesis. No hematochezia. GENITOURINARY: No urgency. No frequency. No dysuria. No hematuria. No obstructive symptoms. No discharge. No pain. No significant abnormal bleeding. MUSCULOSKELETAL: No musculoskeletal pain; no joint swelling. NEUROLOGICAL: Awake, alert, oriented to time, place and person. No headache. No neck pain. No syncope. No seizures. No dizziness. PSYCHIATRIC: Not anxious. No depression. No suicidal thoughts. No homicidal thoughts. SKIN: No rash. No lesions. No wounds. ENDOCRINE: No unexplained weight loss. No weight gain. HEMATOLOGIC/LYMPHATIC: No anemia. No purpura. No petechiae. No prolonged or excessive bleeding. No palpable lymph nodes. PHYSICAL EXAMINATION: GENERAL: The patient is awake, alert and oriented, lying/sitting in bed in no distress. VITAL SIGNS: Temperature 98.0 F, Pulse 58, Respiratory Rate 16, BP 151/73, Pulse Ox 100% HEENT: Head normocephalic, atraumatic. Eyes: Extraocular muscles are intact. Pupils are equal, round and reactive to light and accommodation. Ears: No lesions. Nose appeared normal. Throat: No exudate or erythema. NECK: Supple. No JVD, no carotid bruit. No lymphadenopathy or thyromegaly. LUNGS: Clear to auscultation. Percussion note normal. Chest symmetrical. HEART: S1, S2, no S3. No murmurs. No cyanosis or clubbing. No ascites. Pulses: Dorsalis pedis and posterior tibial pulses +1 to +2 both sides. ABDOMEN: Soft. Non-tender. Bowel sounds active. No CVA tenderness. No mass felt. EXTREMITIES: No edema. Full range of motion of all extremities, equal. NEUROLOGIC: No focal deficit. Cranial nerves II through XII are grossly intact. No headache, no double vision or headache. SKIN: Warm and dry. Intact. Turgor-normal. LYMPHATIC: No palpable lymph nodes/no lymphedema. MUSCULOSKELETAL: Normal joints with no swelling. Muscle tone is normal. LAB REVIEW: 03/29/19 05:30 03/29/19 05:30 03/29/19 05:30: Sodium 132.6 L, Potassium 3.79, Chloride 96.9 L, Carbon Dioxide 24.6, Anion Gap 14.89, BUN 18.2 H, Creatinine 1.10, Estimated GFR (MDRD) 49.00, BUN/Creatinine Ratio 16.54, Glucose 117.5 H, Calcium 8.58, Total Bilirubin 0.23 , AST 19.0, ALT 16.3, Alkaline Phosphatase 77.0, Total Protein 6.34, Albumin 3.79, Globulin 2.55, Albumin/Globulin Ratio 1.48 03/29/19 05:30: WBC 10.84 H, RBC 3.44 L, Hgb 9.3 L, Hct 28.8 L, MCV 83.7, MCH 27.0, MCHC 32.3, RDW Coeff of Margarita 15.0 H, Plt Count 287, Immature Gran % (Auto) 1.0, Neut % (Auto) 70.3, Lymph % (Auto) 17.1, [place] % (Auto) 8.0, Eos % (Auto) 3.0, Baso % (Auto) 0.6, Immature Gran # (Auto) 0.1, Neut # (Auto) 7.6 H, Lymph # (Auto) 1.9, [place] # (Auto) 0.9, Eos # (Auto) 0.3, Baso # (Auto) 0.1 03/28/19 21:20: Urine Color Yellow, Urine Clarity Slightly, Urine pH 5.5, Ur Specific [place] <=1.005, Urine Protein Negative, Urine Glucose (UA) Negative, Urine Ketones Negative, Urine Blood 1+, Urine Nitrite Negative, Urine Bilirubin Negative, Urine Urobilinogen 0.2, Ur Leukocyte Esterase 3+, Urine Microscopic WBC Tntc, Ur Squamous Epith Cells Not present 03/28/19 21:20: Stl Occult Blood (IFOB) Negative, Stool Occult Blood #2 No specimen received, Stool Occult Blood #3 No specimen received ASSESSMENT: 1. The right knee looks practically normal with maybe mild swelling. CT scan of the right knee shows possible osteomyelitis. 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 2. Anemia, stable. PLAN: 1. The patient is going to be seen by Dr. Quintana tomorrow, who is an orthopaedic surgeon in [place], [place] who performed the knee surgery. 2. She will also be referred back to Derik Quintanilla PA-C at the [facility] in [place], [place]. All reports sent to Dr. Quintana. 3. The patient wishes to be discharged home today. 4. The patient is on Rocephin 1 gm and Vancomycin 1 gm b.i.d. q.12 as dosed by pharmacy. Further recommendation for antibiotics will depend on the orthopaedic physician she will see tomorrow. 5. She is recommended to return to the office of Dr. Strickland on Wednesday morning for followup. Plan and coordination of the patient's care discussed in the presence of [employer] Caregiver and nurse. CONDITION: Stable SCRIBED BY: Melba SCHAFFERist scribed while in presence of service performed by Dr. DAKOTA STRICKLAND on 03/29/19 (0800)
--- NOTE | 2019-03-29 10:46 | PN ---
DATE OF SERVICE: 03/28/19 SUBJECTIVE: The patient was seen and examined with the nurse practitioner. The patient has anemia. She was given a couple units of packed red cells. There is no evidence of active GI bleed. Cause of anemia unknown. The patient likely has osteomyelitis of the right knee. The patient has an appointment with Dr. Quitnana on , the day after tomorrow. Will start the patient on Rocephin and Vancomycin. The trimming caser is going to call Dr. Quintana. The patient was also seen by [facility] in [place]. We are going to also send reports to them. The patient has been thoroughly explained about this finding. The patient is noncompliant of diet, lifestyle, followup. CONDITION: Stable. TIME SPENT: More than 30 minutes. Plan and coordination of the patient's care discussed in the presence of nurse. BERNADETTE
[2019-03-29] MEDS: ZOLOFT PO SCH (16:41)
[2019-03-29] MEDS: GLUCOPHAGE PO SCH (16:42)
[2019-03-29] MEDS: CORDARONE PO SCH (16:42)
[2019-03-29] MEDS: SINGULAIR PO SCH (16:42)
[2019-03-29] MEDS: TYLENOL PO PRN (16:45)
[2019-03-30] MEDS ORDERED: ROCEPHIN 1 GM/50 ML D5W 1 GM in PREMIX 50 ML D5W 1 BAG IV ONE (04:00)
[2019-03-30 04:54] VITALS: BP 116/58; TEMP 98.3
[2019-03-30] MEDS ORDERED: VANCOMYCIN 1 GM in SODIUM CHLORIDE 250 ML IV ONE (05:00)
[2019-03-30] MEDS: SYNTHROID PO SCH ×2 (05:32)
[2019-03-30] MEDS: GLUCOPHAGE PO SCH (08:23)
[2019-03-30] MEDS: ASPIRIN EC PO SCH (08:23)
[2019-03-30] MEDS: NON-FORMULARY MEDICATION (Cyanocobalamin (Vitamin B-12) [Vitamin B-12] 1,000 MCG) PO SCH (08:24)
[2019-03-30] MEDS: DYAZIDE PO SCH (08:24)
[2019-03-30] MEDS: ASCORBIC ACID 100 MG PO SCH (08:24)
[2019-03-30] MEDS: LOPRESSOR PO SCH (08:24)
[2019-03-30] MEDS: JANUVIA PO SCH (08:24)
[2019-03-30] MEDS: NEURONTIN PO SCH (08:25)
[2019-03-30] MEDS: PSEUDOEPHEDRINE PO SCH (08:25)
[2019-03-30] MEDS: MAG-OX PO SCH (08:25)
[2019-03-30] MEDS: NORVASC PO SCH (08:25)
[2019-03-30] MEDS: LORATADINE PO SCH (08:25)
[2019-03-30] MEDS: LOTENSIN PO SCH (08:25)
[2019-03-30] MEDS: TURMERIC ROOT EXTRACT 500 MG PO SCH (08:26)
[2019-03-30] MEDS: VITAMIN D PO SCH (08:26)
[2019-03-30] MEDS: ZYLOPRIM PO SCH (08:26)
[2019-03-30] MEDS: NON-FORMULARY MEDICATION (Zinc [Zinc] 50 MG) PO SCH (08:26)
--- NOTE | 2019-03-30 08:33 | CM.DICTOOL ---
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 SAWRTZ AT [facility] TKR, RIGHT TKR, LEFT MELANOMA, RIGHT ARM LAST VITALS Temp Pulse Resp BP Pulse Ox 98.3 F 61 20 116/58 L 97 03/30/19 04:50 03/30/19 04:50 03/30/19 04:50 03/30/19 04:50 03/30/19 04:50 TAKE THESE MEDICATIONS AT HOME Acetaminophen (Tylenol) 1,000 mg PO Q8HR PRN PRN Reason: MODERATE PAIN Last Admin: 03/29/19 16:45 Dose: 1,000 mg Allopurinol (Zyloprim) 100 mg PO DAILY [facility] Last Admin: 03/29/19 08:34 Dose: 100 mg Amiodarone HCl (Cordarone) 200 mg PO QPM [facility] Last Admin: 03/29/19 16:42 Dose: 200 mg Amlodipine Besylate (Norvasc) 5 mg PO DAILY [facility] Last Admin: 03/29/19 08:33 Dose: 5 mg Benazepril HCl (Lotensin) 20 mg PO DAILY [facility] Last Admin: 03/29/19 08:33 Dose: 20 mg Cholecalciferol (Vitamin D) 2,000 unit PO DAILY [facility] Last Admin: 03/29/19 08:33 Dose: 2,000 unit Gabapentin (Neurontin) 300 mg PO BID [facility] Last Admin: 03/29/19 21:20 Dose: 300 mg Levothyroxine Sodium (Synthroid) 100 mcg PO QDAC [facility] Last Admin: 03/30/19 05:32 Dose: 100 mcg Levothyroxine Sodium (Synthroid) 75 mcg PO QDAC [facility] Last Admin: 03/30/19 05:32 Dose: 75 mcg Magnesium Oxide (Mag-Ox) 400 mg PO DAILY [facility] Last Admin: 03/29/19 08:34 Dose: 400 mg Metformin HCl (Glucophage) 1,000 mg PO DAILYWM [facility] Last Admin: 03/29/19 16:42 Dose: 1,000 mg Metoprolol Tartrate (Lopressor) 100 mg PO BID [facility] Last Admin: 03/29/19 21:21 Dose: 100 mg Montelukast Sodium (Singulair) 10 mg PO QPM [facility] Last Admin: 03/29/19 16:42 Dose: 10 mg Non-Formulary Medication (Ascorbic Acid [Vitamin C]) 100 mg PO DAILY [facility] Last Admin: 03/29/19 08:36 Dose: Not Given Non-Formulary Medication (Cyanocobalamin (Vitamin B-12) [Vitamin B-12]) 1,000 mcg PO DAILY [facility] Last Admin: 03/29/19 08:36 Dose: Not Given Non-Formulary Medication (Loratadine/Pseudoephedrine [Loratadine-D 24hr Tablet] ) 1 tab PO QAM [facility] Last Admin: 03/29/19 08:36 Dose: 1 tab Non-Formulary Medication (Turmeric Root Extract [Turmeric Curcumin]) 500 mg PO DAILY [facility] Last Admin: 03/29/19 08:37 Dose: Not Given Non-Formulary Medication (Zinc [Zinc]) 50 mg PO DAILY [facility] Last Admin: 03/29/19 08:37 Dose: Not Given Sertraline HCl (Zoloft) 100 mg PO QPM [facility] Last Admin: 03/29/19 16:41 Dose: 100 mg Sitagliptin Phosphate (Januvia) 50 mg PO DAILY [facility] Last Admin: 03/29/19 08:34 Dose: 50 mg Triamterene/HCTZ (Dyazide) 1 cap PO DAILY [facility] Last Admin: 03/29/19 08:33 Dose: 1 cap Wellbutrin SR 100 mg PO DAILY Last Admin: ALLERGIES Penicillins Adverse Reaction (Verified 12/06/18 13:33) Unknown Mbtzrfr-Fmn-Afb Reductase Inhibitor Adverse Reaction (Verified 12/06/18 13:33) Unknown DISCONTINUED MEDICATIONS NONE NEW PRESCRIPTIONS: NONE GIVEN SMOKING: NOT APPLICABLE DISEASE SPECIFIC EDUCATION: ANEMIA APPOINTMENTS MEDICATIONS LAB REVIEW: 03/30/19 05:32 03/30/19 05:32 03/30/19 05:32: Sodium 131.6 L, Potassium 3.67, Chloride 96.5 L, Carbon Dioxide 23.4, Anion Gap 15.37, BUN 19.7 H, Creatinine 1.23, Estimated GFR (MDRD) 43.00, BUN/Creatinine Ratio 16.01, Glucose 117.0 H, Calcium 8.54, Total Bilirubin 0.14 L, AST 23.9, ALT 17.9, Alkaline Phosphatase 80.5, Total Protein 6.12 L, Albumin 3.72, Globulin 2.40, Albumin/Globulin Ratio 1.55 03/30/19 05:32: WBC 9.70, RBC 3.37 L, Hgb 9.2 L, Hct 28.1 L, MCV 83.4, MCH 27.3 , MCHC 32.7, RDW Coeff of Margarita 14.9 H, Plt Count 267, Immature Gran % (Auto) 1.1 , Neut % (Auto) 68.6, Lymph % (Auto) 18.7, [place] % (Auto) 7.9, Eos % (Auto) 3.1, Baso % (Auto) 0.6, Immature Gran # (Auto) 0.1, Neut # (Auto) 6.7, Lymph # (Auto ) 1.8, [place] # (Auto) 0.8, Eos # (Auto) 0.3, Baso # (Auto) 0.1 PLAN: DISCHARGE HOME WITH SPOUSE ACTIVITY: TOLERATED. USE WALKER WHEN NEEDED FURTHER ACTIVITY DEPENDS ON ORTHOPAEDIC APPOINTMENT TODAY WITH DR. GALLEGOS RESUME HOME MEDICATIONS. NO CHANGES WERE MADE DURING YOUR HOSPITAL STAY AN APPOINTMENT IS SCHEDULED TODAY (03-30-2019) AT 1:[address] GALLEGOS IN [place], [place] PATIENT HAS BEEN GIVEN A CD OF THE RECENT CT SCAN OF THE RIGHT KNEE TO TAKE TO HER APPOINTMENT AN APPOINTMENT IS SCHEDULED WITH DR. PADILLA/MARK CASTILLO APRN ON March AT 3:30 PM AN APPOINTMENT IS SCHEDULED WITH [facility]ED[facility] [place], [place] ON March AT 9 AM MRS. BELL IS ALERT AND ORIENTED X 3. SHE IS INDEPENDENT WITH ACTIVITIES OF DAILY LIVING. SHE USES A ROLLATOR FOR AMBULATION DUE TO RIGHT KNEE PAIN. MEAL INTAKES ARE GOOD AT 100%. NO ABDOMINAL PAIN OR NAUSEA REPORTED. THE PATIENT DENIES CHILLS OR FEVER AND SHE HAS BEEN AFEBRILE DURING HER HOSPITAL STAY. MRS. BELL HAS RECEIVED HER MORNING DOSE OF ROCEPHIN 1 GRAM IV AND VANCOMYCIN 1 GRAM IV PRIOR TO HER DISCHARGE TODAY. SHE IS DISCHARGING WITH HER , HARVINDER FOR THE PURPOSE OF KEEPING AN APPOINTMENT SHE HAD PREVIOUSLY SCHEDULED WITH DR. GALLEGOS IN [place], [place]. MRS. BELL HAD A MEDI-PORT PLACED TO HER LEFT CHEST APPROXIMATELY 4 HOURS AGO. THE PORT IS STILL IN PLACE AND HAS BEEN USED FOR ADMINISTRATION OF IV ANTIBIOTICS DURING HER STAY. SKIN IS INTACT. INCISIONS NOTED TO BOTH KNEES FROM PREVIOUS TKR. SLIGHT SWELLING IS NOTED TO THE RIGHT KNEE, BUT NO ERYTHEMA IS NOTED. SMALL INCISIONS X 2 ARE NOTED TO THE LOWER BACK; SUTURES WERE REMOVED ON 03/28/2019. NO DRAINAGE NOTED TO THE LOWER BACK INCISIONS. ___ MD MARK JOYCE, OPHTHALMOLOGY SURGICAL TECHNICIAN
--- NOTE | 2019-03-30 08:34 | ECHO2D ---
Date of Exam: 03/29/19 Ordering Physician: DR. DAKOTA PADILLA Room #: [id number] Reason for Echo: SOB, EVALUATE LV FUNCTION, HTN, DM M-Mode Normal Adult Results LV Dimensions Normal Adult Results AoV Opening excursions >1.6 >1.6 LVEDD-base- 3.5-5.8 5.3 Ao root dimensions 2.0-3.7 3.2 LVESD-base- 3.1-4.6 L. Atrium dimensions 1.9-3.8 5.4 Post. Wall thickness 0.8-1.1 1.3 IV septum (thickness) 0.7-1.2 1.4 Post. Wall excursion 0.72-1.3 NORMAL Septal motion NORMAL Systolic motion R. Ventricular cavity 1.5-2.0 NORMAL LVEF 60% 55% Paradoxical septal wall motion NORMAL 2-D : 2-D M Mode Echocardiogram was performed using apical four chamber and left parasternal long and short axis views. Mitral, tricuspid and aortic valves appear to be normal. Contractility of the left ventricle seems to be normal, so is the cavity size. ENLARGED LEFT ATRIAL CAVITY. Aortic root appears to be normal. There is no pericardial effusion. There is no thrombus noted in the left ventricular or left aortic cavity. No mitral valve prolapse noted. M-MODE: MV: NORMAL AV: NORMAL TV: NORMAL PV: CHAMBER SIZE: ENLARGED LEFT ATRIAL CAVITY WALL MOTION: NORMAL PERICARDIUM: NORMAL INTERPRETATION: 1. LEFT VENTRICULAR HYPERTROPHY WITH ENLARGED LEFT ATRIAL CAVITY 2. NORMAL LEFT VENTRICLE CONTRACTILITY 3. NORMAL VALVES MTDD
--- NOTE | 2019-03-30 09:29 | PCM.PROG ---
Attending Provider: ATTENDING PROVIDER: Dr. DAKOTA STRICKLAND This patient is seen with Hamida Shane, Nurse Practitioner. DATE OF SERVICE: 03/30/19 SUBJECTIVE: This 73 year old WHITE/ F was hospitalized 03/27/19. The patient is planning on leaving for appointment in [place] today with Dr. Quintana. The patient is going to call and notify the office of results from this appointment. Hgb is stable. REVIEW OF SYSTEMS: CONSTITUTIONAL: No night sweats. No fatigue, malaise, lethargy. No fever or chills. HEENT: Eyes: No visual changes. No eye pain. No eye discharge. ENT: No runny nose. No epistaxis. No sinus pain. No odynophagia. No congestion. RESPIRATORY: No cough, no congestion. No hemoptysis. No shortness of breath. CARDIOVASCULAR: No angina symptoms. No CHF symptoms. No atypical chest pain for CAD. No palpitations. No orthopnea.. GASTROINTESTINAL: No abdominal pain. No nausea or vomiting. No diarrhea or constipation. No hematemesis. No hematochezia. GENITOURINARY: No urgency. No frequency. No dysuria. No hematuria. No obstructive symptoms. No discharge. No pain. No significant abnormal bleeding. MUSCULOSKELETAL: No musculoskeletal pain; no joint swelling. Right knee pain. NEUROLOGICAL: Awake, alert, oriented to time, place and person. No headache. No neck pain. No syncope. No seizures. No dizziness. PSYCHIATRIC: Not anxious. No depression. No suicidal thoughts. No homicidal thoughts. SKIN: No rash. No lesions. No wounds. ENDOCRINE: No unexplained weight loss. No weight gain. HEMATOLOGIC/LYMPHATIC: Anemia. No purpura. No petechiae. No prolonged or excessive bleeding. No palpable lymph nodes. PHYSICAL EXAMINATION: GENERAL: The patient is awake, alert and oriented, lying in bed in no distress. VITAL SIGNS: Temperature 98.3 F, Pulse 61, Respiratory Rate 20, BP 116/58, Pulse Ox 97% HEENT: Head normocephalic, atraumatic. Eyes: Extraocular muscles are intact. Pupils are equal, round and reactive to light and accommodation. Ears: No lesions. Nose appeared normal. Throat: No exudate or erythema. NECK: Supple. No JVD, no carotid bruit. No lymphadenopathy or thyromegaly. LUNGS: Diminished breath sounds. Clear to auscultation. Percussion note normal. Chest symmetrical. HEART: S1, S2, no S3. No murmurs. No cyanosis or clubbing. No ascites. Pulses: Dorsalis pedis and posterior tibial pulses +1 to +2 both sides. ABDOMEN: Soft. Non-tender. Bowel sounds active. No CVA tenderness. No mass felt. EXTREMITIES: No edema. Full range of motion of all extremities, equal. Generalized swelling right knee, no redness. NEUROLOGIC: No focal deficit. Cranial nerves II through XII are grossly intact. No headache, no double vision or headache. SKIN: Not dry. Intact. Turgor-normal. LYMPHATIC: No palpable lymph nodes/no lymphedema. MUSCULOSKELETAL: Normal joints with no swelling. Muscle tone is normal. LAB REVIEW: 03/30/19 05:32 03/30/19 05:32 03/30/19 05:32: Sodium 131.6 L, Potassium 3.67, Chloride 96.5 L, Carbon Dioxide 23.4, Anion Gap 15.37, BUN 19.7 H, Creatinine 1.23, Estimated GFR (MDRD) 43.00, BUN/Creatinine Ratio 16.01, Glucose 117.0 H, Calcium 8.54, Total Bilirubin 0.14 L, AST 23.9, ALT 17.9, Alkaline Phosphatase 80.5, Total Protein 6.12 L, Albumin 3.72, Globulin 2.40, Albumin/Globulin Ratio 1.55 03/30/19 05:32: WBC 9.70, RBC 3.37 L, Hgb 9.2 L, Hct 28.1 L, MCV 83.4, MCH 27.3 , MCHC 32.7, RDW Coeff of Margarita 14.9 H, Plt Count 267, Immature Gran % (Auto) 1.1 , Neut % (Auto) 68.6, Lymph % (Auto) 18.7, [place] % (Auto) 7.9, Eos % (Auto) 3.1, Baso % (Auto) 0.6, Immature Gran # (Auto) 0.1, Neut # (Auto) 6.7, Lymph # (Auto ) 1.8, [place] # (Auto) 0.8, Eos # (Auto) 0.3, Baso # (Auto) 0.1 ASSESSMENT: Please see below. 1. Anemia requiring transfusion 2. Possible osteomyelitis, right knee 3. History of MRSA infection. PLAN: 1. Discharge to followup with Dr. Quintana at 1pm. Plan and coordination of the patient's care discussed in the presence of Dental Associate and nurse. SCRIBED BY: Chelsea PECK scribed while in presence of service performed by Dr. Strickland/Hamida Shane APRN on 03/30/19 ([id number])
--- NOTE | 2019-03-31 11:17 | PN ---
DATE OF SERVICE: 03/30/19 SUBJECTIVE: The patient was seen and examined with the Nurse Practitioner. The patient is going to be discharged. She is going to be seen by Orthopedic MD, Dr. Quintana today. She is on Rocephin and Vancomycin. Further management is going to be based on what the recommendation of the Orthopedic surgeon is. CONDITION: Stable. TIME SPENT: More than 30 minutes. Plan and coordination of the patient's care discussed in the presence of nurse. BERNADETTE
--- NOTE | 2019-03-31 11:18 | PN ---
03/27/19: Level 5 03/28/19: Intermediate 03/29/19: Intermediate 03/30/19: D as in discharge MTDD
--- NOTE | 2019-03-31 13:21 | PN ---
DATE OF SERVICE: 03/29/19 SUBJECTIVE: The patient had an echocardiogram done later on which showed normal LV contractility, LVH and enlarged LA cavity which are practically normal. The patient has been thoroughly explained about our findings involving right knee. Possibility of osteomyelitis. The patient has already been started on Rocephin and Vancomycin. The patient is going to see Dr. Quintana tomorrow to do this appointment is practically 10 days from now. The patient is strongly advised to follow the recommendation of Orthopedic MD that she had seen and was being treated for MRSA infection in the past. TIME SPENT: More than 30 minutes. Plan and coordination of the patient's care discussed in the presence of nurse. BERNADETTE
--- NOTE | 2019-04-17 09:27 | DS ---
DATE OF SERVICE: 03/30/19 FINAL DIAGNOSIS: 1. ANEMIA, TRANSFUSION OF 2 UNITS PACKED CELLS 2. POSSIBLE OSTEOMYELITIS, RIGHT KNEE 3. SHORTNESS OF BREATH 4. HYPERTENSION 5. DIABETES, TYPE 2 (A1C 5.6 IN 2018 6. HISTORY OF MRSA, RIGHT KNEE FOLLOWING TKR, 7. CHRONIC KIDNEY DISEASE, STAGE 3-4 8. SUBARACHNOID HEMORRHAGE FROM FALL 11/2018 9. HISTORY OF BRAIN BLEED 12/2018 (OFF COUMADIN) 10. ATRIAL FIBRILLATION, CARDIOVERSION (NO BLOOD THINNERS DUE TO BRAIN BLEED) 11. DYSLIPIDEMIA 12. OSTEOARTHRITIS 13. POLYARTHRITIS 14. HISTORY OF RECTAL BLEED, DR. SWARTZ AT [place] 15. TKR, RIGHT 16. TKR, LEFT 17. MELANOMA, RIGHT ARM LAST VITALS Temp Pulse Resp BP Pulse Ox 98.3 F 61 20 116/58 L 97 03/30/19 04:50 03/30/19 04:50 03/30/19 04:50 03/30/19 04:50 04:50 DISCHARGE INSTRUCTIONS: 1. AN APPOINTMENT IS SCHEDULED TODAY (03-30-2019) AT 1:[address] QUINTANA IN [place], [place]. THE PATIENT HAS BEEN GIVEN A CD OF THE RECENT CT SCAN OF THE RIGHT KNEE TO TAKE TO HER APPOINTMENT 2. AN APPOINTMENT IS SCHEDULED WITH DR. PADILLA/MARK CASTILLO APRN ON March AT 3:30 PM. 3. AN APPOINTMENT IS SCHEDULED WITH DR. GARRETT AT [facility] IN [place], [place] ON March AT 9 AM. 4. RESUME HOME MEDICATIONS. NO CHANGES WERE MADE DURING YOUR HOSPITAL STAY. MEDICATIONS AT DISCHARGE: Acetaminophen (Tylenol) 1,000 mg PO Q8HR PRN PRN Reason: MODERATE PAIN Last Admin: 03/29/19 16:45 Dose: 1,000 mg Allopurinol (Zyloprim) 100 mg PO DAILY [facility] Last Admin: 03/29/19 08:34 Dose: 100 mg Amiodarone HCl (Cordarone) 200 mg PO QPM [facility] Last Admin: 03/29/19 16:42 Dose: 200 mg Amlodipine Besylate (Norvasc) 5 mg PO DAILY [facility] Last Admin: 03/29/19 08:33 Dose: 5 mg Benazepril HCl (Lotensin) 20 mg PO DAILY [facility] Last Admin: 03/29/19 08:33 Dose: 20 mg Cholecalciferol (Vitamin D) 2,000 unit PO DAILY [facility] Last Admin: 03/29/19 08:33 Dose: 2,000 unit Gabapentin (Neurontin) 300 mg PO BID [facility] Last Admin: 03/29/19 21:20 Dose: 300 mg Levothyroxine Sodium (Synthroid) 100 mcg PO QDAC [facility] Last Admin: 03/30/19 05:32 Dose: 100 mcg Levothyroxine Sodium (Synthroid) 75 mcg PO QDAC [facility] Last Admin: 03/30/19 05:32 Dose: 75 mcg Magnesium Oxide (Mag-Ox) 400 mg PO DAILY [facility] Last Admin: 03/29/19 08:34 Dose: 400 mg Metformin HCl (Glucophage) 1,000 mg PO DAILYWM [facility] Last Admin: 03/29/19 16:42 Dose: 1,000 mg Metoprolol Tartrate (Lopressor) 100 mg PO BID [facility] Last Admin: 03/29/19 21:21 Dose: 100 mg Montelukast Sodium (Singulair) 10 mg PO QPM [facility] Last Admin: 03/29/19 16:42 Dose: 10 mg Non-Formulary Medication (Ascorbic Acid ) 100 mg PO DAILY [facility] Last Admin: 03/29/19 08:36 Dose: Not Given Non-Formulary Medication (Cyanocobalamin (Vitamin B-12) ) 1,000 mcg PO DAILY [facility] Last Admin: 03/29/19 08:36 Dose: Not Given Non-Formulary Medication (Loratadine/Pseudoephedrine ) 1 tab PO QAM [facility] Last Admin: 03/29/19 08:36 Dose: 1 tab Non-Formulary Medication (Turmeric Root Extract ) 500 mg PO DAILY [facility] Last Admin: 03/29/19 08:37 Dose: Not Given Non-Formulary Medication (Zinc ) 50 mg PO DAILY [facility] Last Admin: 03/29/19 08:37 Dose: Not Given Sertraline HCl (Zoloft) 100 mg PO QPM [facility] Last Admin: 03/29/19 16:41 Dose: 100 mg Sitagliptin Phosphate (Januvia) 50 mg PO DAILY [facility] Last Admin: 03/29/19 08:34 Dose: 50 mg Triamterene/HCTZ (Dyazide) 1 cap PO DAILY [facility] Last Admin: 03/29/19 08:33 Dose: 1 cap Wellbutrin SR 100 mg PO DAILY Last Admin: NEW PRESCRIPTIONS: NONE GIVEN DISCONTINUED MEDICATIONS: NONE DIET INSTRUCTIONS: HEART HEALTHY ACTIVITY: TOLERATED. USE WALKER WHEN NEEDED FURTHER ACTIVITY DEPENDS ON ORTHOPAEDIC APPOINTMENT TODAY WITH DR. QUINTANA SMOKING: NOT APPLICABLE DISEASE SPECIFIC EDUCATION: ANEMIA APPOINTMENTS MEDICATIONS HOSPITAL COURSE: This 73-year-old white female who we had been following as an outpatient for worsening anemia was found last week on routine labs she had hemoglobin of 8.6 on last Wednesday, I repeated this on Wednesday, hemoglobin was down to 8.4. We repeated on Wednesday, saw her in the office. Hemoglobin was down to 8 even. Once we made the decision to admit her from the office repeat CBC showed hemoglobin of 7.6. She was pale, short of breath. She had no reason for the anemia. She did not have any black stools. She was on Coumadin about six months ago and had been for a long time however she fell and had a brain bleed, subarachnoid hemorrhage and has been off her Coumadin since December because of this. She has a history of atrial fibrillation which had multiple cardioversions, last wsa done last year and has remained in normal sinus rhythm. We admitted her, transfused two units of packed red blood cells, hemoglobin improved. The only change that he had been experiencing was that she was having right knee pain and swelling. She had a right knee replacement several years ago and ended up with an MRSA infection and had to have multiple surgeries. She states she hadn't had any falls to injure the knee. We did a CT scan with and without contrast of the knee which shows possible osteomyelitis. Blood cultures were negative but one was done out of her port, the other was a regular blood draw. Both of which are negative as of now. Due to the history of MRSA infection, we started her on Vancomycin and Rocephin IV. She has an appointment with Dr. Quintana which is the orthopaedic surgeon who got rid of her infection following knee replacement several years ago. She has an appointment with him today in [place] so she has been discharged in stable condition with plan to see him and followup with further instructions. CT scan recommended that she had an aspiration of the fluid on her knee which we are hoping that he would do. We are hoping that he will readmit her today. If not, she has an appointment as scheduled for tomorrow to followup with us. Stool for occult blood was negative. Urine was normal. Again, there is no other reason for her cause of anemia so she was given about 36 hours worth of UV antibiotics. Again she has an appointmemt today. Dr. Quintana has been notified of the CT scan. We have faxed him a copy. We will fax him a copy of the discharge summary along with she is taking the disk for him to look at. She does have an appointment with Dr. Garrett at the [facility] which she had seen last week. She has an upcoming appointment on the . Due to the anemia, hopefully they will keep her. If not again we will see her on Wednesday in the office and go from there. She is discharged in stable condition. Today her henoglobin is 9.2, has been steady. Yesterday it was 8.9, blood pressure is good 116/58, telemetry has been normal. All of her medications have remained the same. TIME SPENT: More than 60 minutes. BERNADETTE
== END 2019-03-30 08:42 | disposition home or self-care (01) | DRG 641 ==
LOC: MEDSURG B 14:05
PROVIDERS: ADMIT Internal Medicine; ATTEND Internal Medicine
DX: Z86.79 Personal history of other diseases of the circulatory system; E78.5 Hyperlipidemia, unspecified; M13.0 Polyarthritis, unspecified; M19.90 Unspecified osteoarthritis, unspecified site; R60.0 Localized edema; E11.9 Type 2 diabetes mellitus without complications; R06.02 Shortness of breath; I48.91 Unspecified atrial fibrillation; M86.9 Osteomyelitis, unspecified; M25.461 Effusion, right knee; I10 Essential (primary) hypertension; E53.8 Deficiency of other specified B group vitamins; F32.9 Major depressive disorder, single episode, unspecified; M79.661 Pain in right lower leg; N18.3 Chronic kidney disease, stage 3 (moderate)

== ENCOUNTER 2019-05-01 13:25 | Outpatient (CLI) | payer OTHER | END 2019-05-01 13:26 | disposition home or self-care (01) | LOC: LAB 13:25 | PROVIDERS: ATTEND Internal Medicine Cardiovascular Disease | DX: Z51.81 Encounter for therapeutic drug level monitoring (principal); Z79.01 Long term (current) use of anticoagulants; I48.0 Paroxysmal atrial fibrillation; F33.41 Major depressive disorder, recurrent, in partial remission | CPT/HCPCS: 36415; 85610; 90853 ==

== ENCOUNTER 2019-05-08 10:03 | Outpatient (CLI) | END 2019-05-08 10:04 | disposition home or self-care (01) | LOC: LAB 10:03 | PROVIDERS: ATTEND Internal Medicine Cardiovascular Disease | DX: Z51.81 Encounter for therapeutic drug level monitoring (principal); Z79.01 Long term (current) use of anticoagulants; I48.0 Paroxysmal atrial fibrillation; F33.41 Major depressive disorder, recurrent, in partial remission | CPT/HCPCS: 36415; 85610 ==

== ENCOUNTER 2019-05-08 15:33 | Outpatient (RCR) | payer OTHER ==
--- NOTE | 2019-05-09 11:05 | RS.OPPTEV2 ---
Date of Note: 05/08/19 Visit #: 1 Number of visits approved by Insurance: NA Date of Evaluation: 05/08/19 Payer Source: MEDICARE Treatment Diagnosis: Right knee pain, following TKA History of Condition/Mechanism of Injury:: Right TKA surgery in 2009, she then had 3-4 more surgeries on the right knee including revisions and spacers due to complications from MRSA infection. The last surgery to the right knee being approximately 2013. Reports she started having pain again in the right knee over the past 4-6 weeks. She was told the knee shows no infection and she was sent to therapy for strengthening. Prior Level of Function.....Patient was independent with: ADL's, Self Care, Ambulation/Mobility (with rollator), Community Integration/Access Functional Limitations: Standing, Bending, Ambulation, Community Access/ Integration Current Subjective/complaints:: Mrs. Ortiz reports right knee pain. States it hurt like it did when she had the infection years ago. Reports no known injury recently. States the right knee feels weak. She has tingling in her right foot/ toes from having an epidural in 2006. States her ankles swell at night. She has right knee pain with walking and when laying down at night. She has stairs in her home, but she does not have to use them. She uses a rollator for ambulation outside the home, and mostly goes without a device inside her home. States she is able to hold onto furniture or the atkinson. She has difficulty ascending/descending stairs, performing activities in her home, and ambulating. Treatment Side (optional): Right Medical History Medical History: Hypertension, Diabetes, Arthritis, Cancer (Melanoma right arm- some lymph nodes removed) Medical History Comments:: Right LE edema, Right ankle fracture a few years ago Surgical History Comments:: Bilateral TKA's, Right Revision and spacers due to complications from MRSA infection. Patella stabilization surgery on the right knee. Cardioversion- Afib Smoking Status: Former smoker Hx Home Medications: Patient did not bring list of medications. Patient's Goals: Her goal is to gain strength and stability in her right LE. Pain Assessment - Pain Description Pain Location: right knee Pain Description: Aching Current Pain Intensity: not quantified Worst Pain Intensity: not quantified Functional Outcome Measure LE Functional Scale: 38 (38/80=52.5% impairment) Other: Tinetti Assessement: (Moderate fall risk) - G Codes & Severity Modifier G Codes & Modifier: NA Source of G Code score: nA Observation - Observation Inspection: Right knee demonstrates mature scars from TKA and other surgeries. Demonstrates observable lack of muscle mass in the medial portion of the Quadriceps. While sitting in chair, right lower leg and ankle appear to be swollen, compared to the left LE. Gait - Gait Pattern Gait Comments: Patient ambulates in the department with her rollator. She demonstrates hyperextension of the right knee in stance phase. Appears to have decreased control of deceleration of terminal knee extension at heel strike. Demonstrates inversion of the right ankle at heelstrike to stance phase. She is able to ambulate short distances without an assistive device. Without a device, she demonstrates shorter stance on the right LE and less right knee and hip flexion during swing phase. General Range of Motion: Left knee AROM full extension to 125 degrees. Right knee AROM full extension to 129 degrees. Bilateral hip AROM is WFL's. Left ankle WFL's. Right ankle eversion is limited actively, able to perform DF, PF, and inversion. Muscle Strength: Left LE 4+ to 5/5 throughout. Right hip 4/5 generally throughout, right quads 4-/5, HS 4/5. Right ankle DF, PF, inversion 4/5, eversion 2+/5. Trunk strength 4/5. Special Tests: Right knee demonstrates no hypermobility compared to the left knee joint. Palpation Comments:: Upon palpation, right anterior thigh demonstrates less muscle mass of the Vastus Medialis and Rectus Femoris upon comparison to the left thigh. Sensation - Sensation Comments: Patient reports tingling/numbness in the toes of the right foot. States she has some numbness at her incisions of the right knee. Balance - Sitting Balance Static Sitting Balance: Good Dynamic Sitting Balance: Good - Standing Balance Static Standing Balance: Fair Dynamic Standing Balance: Fair (-) Interventions - Exercise/Activities/Manual Therapy Exercises/Activities: Patient instructed in HEP of SAQ's, hip adduction isometrics with pillow, and resisted hip abduction with red theraband. Manual Therapy: na HOME EXERCISE PROGRAM: SAQ's, hip adduction isometrics with pillow, and resisted hip abduction with red theraband. - Charges Timed Code Treatment Minutes: 0 mins Total Treatment Time: 50 mins Procedures billed for this date of service:: EVAL Low EVALUATION COMPLEXITY LEVEL EVALUATION COMPLEXITY LEVEL: HISTORY: High (Hx of multiple surgeries to right knee due to complications from MRSA, Right ankle fx, left TKA, Hx of falls), EXAM OF BODY SYSTEMS: Medium (ROM, Strength, gait, sensation, ), CLINICAL PRESENTATION: Low, CLINICAL DECISION MAKING: Low Assessment Assessment: Mrs. Ortiz presents with right knee pain, with a long history of problems with this knee since having her initial TKA in 2009. She demonstrates weakness and a lack of muscle mass in the right quads and also demonstrates weakness of the right ankle. She demonstrates impaired standing balance and presents to be at a Moderate risk for falls per Tinetti Assessment. She exhibits good potential to benefit from right LE strengthening, along with balance and gait training to improve her safety, decrease her right knee pain, and reduce her risk for falls with ambulation. Patient Education: Education of diagnosis, Body/Joint mechanics, Home Exercise Program, Home Safety, Activity Modification, Education of Plan of Care Rehab Potential: Good Short Term Goals Goal #1: Pt independent in initial HEP. Goal to be met by: 05/22/19 Goal #2: Right quad strength improved to 4/5. Goal to be met by: 05/22/19 Goal #3: Right ankle eversion strength 3+/5. Goal to be met by: 05/22/19 Goal #4: Right knee pain decreased to minimal/moderate with amb. short distances. Goal to be met by: 05/22/19 Senior Care Goals Goal #1: Pt knows HEP and to continue ex's to maintain functional level at D/C. Goal to be met by: 06/23/19 Goal #2: Score on LE functional scale improved to 40% impairment or less. Goal to be met by: 06/23/19 Goal #3: Pt able to perform selfcare and light ADL's with minimal right knee pain. Goal to be met by: 06/23/19 Goal #4: Pt to ambulate community distances with AAD with minimal right knee pain. Goal to be met by: 06/23/19 Plan - Treatment to be Provided Procedures: Therapeutic Exercises, Therapeutic Activity, Gait Training, Manual Therapy, Patient Education Modalities: No Modalities - Treatment Plan Frequency: 2 X week Duration: 4 weeks Dates of Plate Grinder Goals: 06/23/19 Expiration date of current Insurance Approval:: NA - Treatment Code (1) Knee pain Code(s): M25.569 - PAIN IN UNSPECIFIED KNEE Qualifiers: Chronicity: acute Laterality: right Qualified Code(s): M25.561 - Pain in right knee (2) Muscle weakness Code(s): M62.81 - MUSCLE WEAKNESS (GENERALIZED) Comments: M62.81 (3) Functional gait abnormality Code(s): R26.89 - OTHER ABNORMALITIES OF GAIT AND MOBILITY Comments: R26.89 (4) Pain due to internal orthopedic prosthetic devices, implants and grafts, sequela Code(s): T84.84XS - PAIN DUE TO INTERNAL ORTHOPEDIC PROSTH DEV/GRFT, SEQUELA Comments: T84.84XS
--- NOTE | 2019-05-11 15:02 | RS.CXNS ---
Date of scheduled appointment: 05/11/19 Type: Cancel (Patient called to cancel appointment. States she is having a procedure tomorrow and will call to reschedule.)
== END 2019-05-20 23:59 | disposition short-term general hospital (02) ==
PROVIDERS: ATTEND Orthopaedic Surgery Adult Reconstructive Orthopaedic Surgery
DX: M25.561 Pain in right knee (principal); M62.81 Muscle weakness (generalized); R26.89 Other abnormalities of gait and mobility; T84.84XS Pain due to internal orthopedic prosthetic devices, implants and grafts, sequela

== ENCOUNTER 2019-05-10 10:00 | Outpatient (RCR) | payer OTHER | END 2019-05-20 23:59 | LOC: NEWBEG 10:00 | PROVIDERS: ATTEND Psychiatry & Neurology Psychiatry | DX: F33.41 Major depressive disorder, recurrent, in partial remission (principal) | CPT/HCPCS: 90853; 99213 ==

== ENCOUNTER 2019-05-16 13:59 | Outpatient (CLI) | END 2019-05-16 14:00 | disposition home or self-care (01) | LOC: LAB 13:59 | PROVIDERS: ATTEND Internal Medicine Cardiovascular Disease | DX: Z51.81 Encounter for therapeutic drug level monitoring (principal); Z79.01 Long term (current) use of anticoagulants; D64.9 Anemia, unspecified; I48.0 Paroxysmal atrial fibrillation | CPT/HCPCS: 36415; 85025; 85610 ==

== ENCOUNTER 2019-05-23 14:43 | Outpatient (CLI) | payer OTHER | END 2019-05-23 14:44 | disposition home or self-care (01) | LOC: LAB 14:43 | PROVIDERS: ATTEND Internal Medicine Cardiovascular Disease | DX: Z51.81 Encounter for therapeutic drug level monitoring (principal); Z79.01 Long term (current) use of anticoagulants; D64.9 Anemia, unspecified; I48.0 Paroxysmal atrial fibrillation | CPT/HCPCS: 36415; 85025; 85610 ==

== ENCOUNTER 2019-05-26 10:34 | Outpatient (CLI) | payer OTHER | END 2019-05-26 10:35 | disposition home or self-care (01) | LOC: LAB 10:34 | PROVIDERS: ATTEND Internal Medicine Cardiovascular Disease | DX: Z51.81 Encounter for therapeutic drug level monitoring (principal); Z79.01 Long term (current) use of anticoagulants; I48.0 Paroxysmal atrial fibrillation | CPT/HCPCS: 36415; 85610 ==

== ENCOUNTER 2019-05-29 13:25 | Outpatient (CLI) | END 2019-05-29 13:26 | disposition home or self-care (01) | LOC: LAB 13:25 | PROVIDERS: ATTEND Internal Medicine Cardiovascular Disease | DX: Z79.01 Long term (current) use of anticoagulants (principal); Z51.81 Encounter for therapeutic drug level monitoring; I48.0 Paroxysmal atrial fibrillation | CPT/HCPCS: 36415; 85610 ==